=== PATIENT | female | born 1975 | race Caucasian/White ===

== ENCOUNTER 2018-10-13 00:43 | Emergency (ER) | payer SELFPAY ==
[~2018-10-13] VITALS: Ht 162.6 cm; Wt 110.7 kg
[2018-10-13] MEDS ORDERED: ASPIRIN 81 MG CHEW (CHILDREN'S ASA) PO ONE (01:00)
[2018-10-13] MEDS ORDERED: NITROGLYCERIN 0.4 MG SL TABS BTL 25'S SL PRN (01:00)
--- NOTE | 2018-10-13 01:03 | ED Chest Pain ---
General Stated Complaint: CHEST PAIN Source: patient Exam Limitations: no limitations History of Present Illness Date Seen by Provider: Oct 13, 2018 Time Seen by Provider: 00:49 Initial Comments Patient presents to ER by private conveyance with chief complaint of chest pain and palpitations worse with exertion. It started yesterday around 6 in the morning when she was getting off work at night. 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 She thought it would go away but it persisted. Tonight in the middle of her shift she was not able to get any more work done because the pain was getting up to a 10 out of 10 episodic and then going back down to a baseline of 3 out of 10. It's 5 out of 10 presently. She has not taken anything for it. She denies a history of drinking or drugs but she does smoke a cigarette every other day. She has no personal history of coronary artery disease or dysrhythmias. She had a stress test last year that was negative. Dr. Orellana is her primary care doctor. She has a history of POTS, lupus and spongiform medullary kidney. She remarks that her heart rate routinely runs around 100 110. Her blood pressure has been very high in the last 24 hours. She's been taking all of her usual medicines. She takes Hydrocort thiazide for blood pressure and 75 g of Synthroid. It's been a year since she's had her TSH checked. She's had echocardiograms in the past that did not demonstrate any heart failure per patient report. She's noted that she's had increased swelling lately. She feels shortness of breath when the pain comes on. She has not taken any nitroglycerin or aspirin. She has no significant family history of coronary artery disease. She does not have diabetes, hypercholesterolemia or personal history of CAD/ stroke. She denies a history of acid reflux. She does have asthma and took her inhaler at the beginning of her shift about 1800 but says it did not help with her breathlessness. She denies any wheezing cough fevers or chills. She denies nausea or radiation of her pain. Pain is made worse by deep inspiration and movement but not by direct palpation. She also admits to a history of dysautonomia causing high blood pressure. Allergies and Home Medications Allergies Coded Allergies: Penicillins (Verified Allergy, Severe, anaphylaxis, 10/13/18) Patient Home Medication List Home Medication List Reviewed: Yes Review of Systems Review of Systems Constitutional: No chills, No diaphoresis EENTM: No Blurred Vision, No Double Vision Respiratory: Denies Cough; Shortness of Air, SOA With Exertion; Denies Wheezing Cardiovascular: See HPI, Chest Pain, Edema; Denies Irregular Heart Rate; Palpitations Gastrointestinal: Denies Abdomen Distended, Denies Abdominal Pain, Denies Constipated, Denies Diarrhea, Denies Nausea Genitourinary: Denies Burning, Denies Discharge Musculoskeletal: No back pain, No joint pain Skin: No change in color, No dryness, No lesions Psychiatric/Neurological: Denies Headache, Denies Numbness, Denies Tingling Past Gvrivuf-Vjgyye-Myrqvc Hx Patient Social History Alcohol Use: Denies Use Recreational Drug Use: No Smoking Status: Current Everyday Smoker Type Used: Cigarettes (1 cig/day) Recent Foreign Travel: No Contact w/Someone Who Travel: No Physical Exam Vital Signs Vital Signs - First Documented 10/13/18 00:50 Temp 98.2 Pulse 96 Resp 16 B/P (MAP) 160/114 (129) Pulse Ox 96 O2 Delivery Nasal Cannula O2 Flow Rate 2.00 Capillary Refill : Height, Weight, BMI Height: '" Weight: lbs. oz. kg; BMI Method: General Appearance: Mild Distress, Obese HEENT: Pharynx Normal, Moist Mucous Membranes Respiratory: Chest Non Tender, Lungs Clear, Normal Breath Sounds, No Accessory Muscle Use, No Respiratory Distress Cardiovascular: Regular Rate, Rhythm, No Murmur, Normal Peripheral Pulses ( bounding bilateral dorsal pedal pulses), Tachycardia, Other (trace bipedal edema ) Gastrointestinal: Non Tender, Soft Extremity: Normal Capillary Refill, Normal Inspection, Normal Range of Motion, Non Tender, No Calf Tenderness Neurologic/Psychiatric: Alert, Oriented x3 Skin: Normal Color, Warm/Dry Focused Exam Lactate Level 10/13/18 02:21: Lactic Acid Level 1.61 Lactic Acid Level Laboratory Tests Test 10/13/18 02:21 Lactic Acid Level 1.61 MMOL/L (0.50-2.00) Progress/Results/Core Measures Results/Orders Lab Results Laboratory Tests Test 10/13/18 01:01 10/13/18 02:21 10/13/18 02:25 10/13/18 03:11 Range/Units White Blood Count 7.5 4.3-11.0 10^3/uL Red Blood Count 4.77 4.35-5.85 10^6/uL Hemoglobin 14.5 11.5-16.0 G/DL Hematocrit 43 35-52 % Mean Corpuscular Volume 90 80-99 FL Mean Corpuscular Hemoglobin 30 25-34 PG Mean Corpuscular Hemoglobin Concent 34 32-36 G/DL Red Cell Distribution Width 11.8 10.0-14.5 % Platelet Count 278 130-400 10^3/uL Mean Platelet Volume 9.6 7.4-10.4 FL Neutrophils (%) (Auto) 56 42-75 % Lymphocytes (%) (Auto) 35 12-44 % Monocytes (%) (Auto) 5 0-12 % Eosinophils (%) (Auto) 3 0-10 % Basophils (%) (Auto) 0 0-10 % Neutrophils # (Auto) 4.2 1.8-7.8 X 10^3 Lymphocytes # (Auto) 2.6 1.0-4.0 X 10^3 Monocytes # (Auto) 0.4 0.0-1.0 X 10^3 Eosinophils # (Auto) 0.3 0.0-0.3 10^3/uL Basophils # (Auto) 0.0 0.0-0.1 10^3/uL Prothrombin Time 13.4 12.2-14.7 SEC INR Comment 1.0 0.8-1.4 Activated Partial Thromboplast Time 30 24-35 SEC D-Dimer 1.34 H 0.00-0.49 UG/ML Sodium Level 136 135-145 MMOL/L Potassium Level 3.3 L 3.6-5.0 MMOL/L Chloride Level 95 L 98-107 MMOL/L Carbon Dioxide Level 16 L 21-32 MMOL/L Anion Gap 25 H 5-14 MMOL/L Blood Urea Nitrogen 11 7-18 MG/DL Creatinine 0.71 0.60-1.30 MG/DL Estimat Glomerular Filtration Rate > 60 BUN/Creatinine Ratio 15 Glucose Level 174 H 70-105 MG/DL Calcium Level 9.6 8.5-10.1 MG/DL Corrected Calcium 8.5-10.1 MG/DL Magnesium Level 1.9 1.8-2.4 MG/DL Total Bilirubin 0.5 0.1-1.0 MG/DL Aspartate Amino Transf (AST/SGOT) 185 H 5-34 U/L Alanine Aminotransferase (ALT/SGPT) 221 H 0-55 U/L Alkaline Phosphatase 85 40-136 U/L Myoglobin 33.3 10.0-92.0 NG/ML Troponin T < 6 < 6 <=10 NG/L Pro-B-Type Natriuretic Peptide 23.5 <75.0 PG/ML Total Protein 7.7 6.4-8.2 GM/DL Albumin 4.8 H 3.2-4.5 GM/DL Lipase 40 8-78 U/L Salicylates Level < 0.3 L 5.0-20.0 MG/DL Acetaminophen Level < 10 L 10-30 UG/ML Serum Alcohol < 10 <10 MG/DL Lactic Acid Level 1.61 0.50-2.00 MMOL/L Urine Color YELLOW Urine Clarity CLEAR Urine pH 5.5 5-9 Urine Specific Blair 1.015 L 1.016-1.022 Urine Protein NEGATIVE NEGATIVE Urine Glucose (UA) NEGATIVE NEGATIVE Urine Ketones NEGATIVE NEGATIVE Urine Nitrite NEGATIVE NEGATIVE Urine Bilirubin NEGATIVE NEGATIVE Urine Urobilinogen 0.2 NORMAL MG/DL Urine Leukocyte Esterase TRACE H NEGATIVE Urine RBC (Auto) 3+ H NEGATIVE Urine RBC 0-2 /HPF Urine WBC 2-5 /HPF Urine Squamous Epithelial Cells 0-2 /HPF Urine Crystals NONE /LPF Urine Bacteria NEGATIVE /HPF Urine Casts NONE /LPF Urine Mucus SMALL H /LPF Urine Culture Indicated NO My Orders Orders - ANIL RIVERA Ekg Tracing (10/13/18 00:45) Continuous Ekg Monitoring (10/13/18 00:45) Cbc With Automated Diff (10/13/18 00:56) Magnesium (10/13/18 00:56) Chest 1 View Ap/Pa Only (10/13/18 00:56) Comprehensive Metabolic Panel (10/13/18 00:56) Myoglobin Serum (10/13/18 00:56) Protime With Inr (10/13/18 00:56) Partial Thromboplastin Time (10/13/18 00:56) Lipid Panel (10/14/18 06:00) Aspirin Chewable Tablet (Baby Aspirin Ch (10/13/18 01:00) Nitroglycerin 0.4 Mg Btl 25's (Nitrostat (10/13/18 01:00) Saline Lock/Iv-Start (10/13/18 00:56) Lipase (10/13/18 00:56) Fibrin Degradation Products (10/13/18 00:56) Troponin T (10/13/18 00:56) Probnp Fs (10/13/18 00:56) Orthostatic Vital Signs (Adult (10/13/18 01:11) Thyroid Stimulating Hormone (10/13/18 01:11) Troponin T (10/13/18 03:00) Lidocaine 2% Viscous 15 Ml (Xylocaine Vi (10/13/18 02:30) Famotidine Tablet (Pepcid Tablet) (10/13/18 02:16) Antacid Suspension (Mylanta Suspension (10/13/18 02:30) Potassium Cl 10meq/50ml Ivpb (Kcl 10 Meq (10/13/18 02:30) Ua Culture If Indicated (10/13/18 02:19) Lactic Acid Analyzer (10/13/18 02:19) Alcohol (10/13/18 02:19) Salicylate (10/13/18 02:19) Acetaminophen (10/13/18 02:27) Medications Given in ED Current Medications Medications Dose Ordered Sig/Natasha Route Start Time Stop Time Status Last Admin Dose Admin Al Hydrox/Mg Hydrox/Simethicone 30 ml ONCE ONCE PO 10/13/18 02:30 10/13/18 02:31 DC 10/13/18 02:33 30 ML Lidocaine HCl 15 ml ONCE ONCE PO 10/13/18 02:30 10/13/18 02:31 DC 10/13/18 02:33 15 ML Nitroglycerin 0.4 mg UD PRN SL 10/13/18 01:00 10/13/18 01:07 0.4 MG Potassium Chloride 50 ml @ 50 mls/hr ONCE ONCE IV 10/13/18 02:30 10/13/18 03:29 DC 10/13/18 02:33 50 MLS/HR Vital Signs/I&O 10/13/18 10/13/18 10/13/18 10/13/18 00:50 01:21 01:22 01:22 Temp 98.2 Pulse 96 96 Resp 16 B/P (MAP) 160/114 (129) 152/96 (114) 153/111 (125) 152/108 (123) Pulse Ox 96 O2 Delivery Nasal Cannula O2 Flow Rate 2.00 10/13/18 10/13/18 01:31 02:27 Temp 98.2 Pulse 96 Resp 16 B/P (MAP) 153/111 Pulse Ox 96 O2 Delivery Nasal Cannula Nasal Cannula O2 Flow Rate 2.00 2.00 Progress Progress Note #1: Time: 01:05 Progress Note Because of her elevated blood pressure we'll give her some aspirin and nitroglycerin see if that brings her pain down from a 5 out of 10. If this does not help and may try a GI cocktail. EKG is unremarkable initially. Plan to check orthostatic vital signs and TSH. TSH is a send out to [facility] and will not be available at this time. ED ACS is negative to points. Low risk by the EDACS Score. If the patient also has: (1) EKG without new ischemic changes and (2) negative initial and 2-hour troponins, then this patient is safe for discharge to early outpatient follow- up investigation (or proceed to earlier inpatient testing). If EKG with ischemic changes or positive troponin, they are not low risk and require normal risk stratification. [place] score for pulmonary embolism: 3 points. Low risk group: 7-9% incidence of PE from several studies. Well score for pulmonary embolism: 0.0 points. Low risk group: 1.3% chance of PE in an ED population. Progress Note #2: Time: 02:28 Progress Note Patient's AST and ALT are marginally elevated. She says this has not been elevated in the past. She did have a work related fingerstick about a year ago and had subsequent testing but it was negative. She's not having any significant nausea vomiting diarrhea but she does have a history of IBS D. This could cause her to be acidotic with an anion gap. She does not take Tylenol and has not been on aspirin. She has metformin prescribed to her but she says she's not been taking for the past 2 weeks. She denies alcohol or methanol use. She denies glue. 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 We'll check Tylenol, salicylate, alcohol, urine ketones, lactic acid lab values in addition to repeat troponin at 0300. She says she does avoid carbohydrates because she has a gluten insensitivity but is not actively seeking a ketogenic diet. She says she's been just feeling poorly With low energy for the past 3 or 4 weeks and to that and she was put on amphetamines to help give her more energy but she says she's not been taking them. She does take hydrochlorothiazide which may cause some of her mild electrolyte disturbances. We'll give her a little potassium while she is waiting on her lab results. Progress Note #3: Time: 03:38 Progress Note Labs are unremarkable. Patient's blood pressure has come down significantly and her pain has resolved after the GI cocktail. We'll then have her follow-up with Dr. Virgen, cardiology outpatient and her primary care provider for further workup of her symptoms outpatient. Initial ECG Impression Date: Oct 13, 2018 Initial ECG Impression Time: 00:56 Initial ECG Rate: 97 Initial ECG Rhythm: Normal Sinus Initial ECG Intervals: Normal Initial ECG Impression: Normal Initial ECG Comparisson: No Previous ECG Available Comment No previous EKGs to compare to but she is in normal sinus rhythm with no ST elevation or depression. Diagnostic Imaging Diagonstic Imaging: Xray Plain Films/CT/US/NM/MRI: chest (1v) Comments No acute cardiopulmonary processes noted. Soft tissues and osseous structures are unremarkable. Reviewed: Reviewed by Me Departure Impression Primary Impression: Chest pain Qualified Codes: R07.9 - Chest pain, unspecified Additional Impressions: Intermittent palpitations Elevated transaminase level Disposition: 01 HOME, SELF-CARE Condition: Stable Departure-Patient Inst. Decision time for Depature: 03:39 Referrals: NEFTALI VIRGEN MD FACP FAC CCDS NO,LOCAL PHYSICIAN (PCP) Primary Care Physician Patient Instructions: Chest Pain That Is Not Caused by the Heart (DC) Add. Discharge Instructions: Start taking omeprazole 20 mg daily for the next 2 weeks to see if this improves her symptoms. Call Dr. Virgen and request an appointment Sunday or Sunday. Return to the ER if you have significant chest pain. Continue to take your medications as prescribed. Take potassium supplement 20 mEq daily for the next week. Follow-up with primary care to discuss your elevated liver transaminases. Scripts Potassium Chloride (Potassium Chloride) 20 Meq Tablet.er 20 MEQ PO DAILY for 14 Days, #14 TAB 0 Refills Prov: ANIL RIVERA 10/13/18 Work/School Note: Work Release Form Date Seen in the Emergency Department: Oct 13, 2018 Return to Work: Oct 13, 2018 Restrictions: No Restrictions Copy Copies To 1: NEFTALI VIRGEN MD FACP FACC CCDS ANIL RIVERA Oct 13, 2018 01:03
[2018-10-13 01:21] VITALS: BP 152/96
[2018-10-13 01:22] VITALS: BP_SYST 152; BP_SYST 153; BP_DIAS 108; BP_DIAS 111
[2018-10-13 01:34] LABS: HEMATOCRIT 43 % (35-52); HEMOGLOBIN 14.5 G/DL (11.5-16.0); MEAN CORPUSCULAR HEMOGLOBIN 30 PG (25-34); MEAN CORPUSCULAR HGB CONC 34 G/DL (32-36); MEAN CORPUSCULAR VOLUME 90 FL (80-99); WHITE BLOOD COUNT 7.5 10^3/uL (4.3-11.0)
[2018-10-13 01:35] LABS: BASOPHILS % (AUTO) 0 % (0-10); EOSINOPHILS # (AUTO) 0.3 10^3/uL (0.0-0.3); EOSINOPHILS % (AUTO) 3 % (0-10); LYMPHOCYTES # (AUTO) 2.6 X 10^3 (1.0-4.0); LYMPHOCYTES % (AUTO) 35 % (12-44); MEAN PLATELET VOLUME 9.6 FL (7.4-10.4); MONOCYTES # (AUTO) 0.4 X 10^3 (0.0-1.0); MONOCYTES % (AUTO) 5 % (0-12); NEUTROPHILS # (AUTO) 4.2 X 10^3 (1.8-7.8); NEUTROPHILS % (AUTO) 56 % (42-75); PLATELET COUNT 278 10^3/uL (130-400); RED CELL DISTRIBUTION WIDTH 11.8 % (10.0-14.5)
--- NOTE | 2018-10-13 01:36 | NUR ---
PT. REPORTED HER PAIN IS GONE AFTER SHE RECEIVED THE NITRO. DOCTOR INFORMED.
[2018-10-13 01:56] LABS: PROTHROMBIN TIME PATIENT 13.4 SEC (12.2-14.7)
[2018-10-13 01:59] LABS: CHLORIDE 95 MMOL/L (98-107); POTASSIUM 3.3 MMOL/L (3.6-5.0); SODIUM 136 MMOL/L (135-145)
[2018-10-13 02:00] LABS: ALANINE AMINOTRANSFERASE 221 U/L (0-55); ALKALINE PHOSPHATASE 85 U/L (40-136); BILIRUBIN,TOTAL 0.5 MG/DL (0.1-1.0); BUN/CREATININE RATIO 15; CALCIUM 9.6 MG/DL (8.5-10.1); CARBON DIOXIDE 16 MMOL/L (21-32); CREATININE SERUM 0.71 MG/DL (0.60-1.30); GFR ESTIMATED > 60; GLUCOSE 174 MG/DL (70-105); MAGNESIUM 1.9 MG/DL (1.8-2.4)
[2018-10-13 02:01] LABS: ALBUMIN 4.8 GM/DL (3.2-4.5); LIPASE 40 U/L (8-78); TOTAL PROTEIN 7.7 GM/DL (6.4-8.2)
[2018-10-13] MEDS ORDERED: FAMOTIDINE 20 MG (PEPCID) TABLET PO STA (02:16)
--- NOTE | 2018-10-13 02:16 | NUR ---
Pt reported her pain is starting to come back. Doctor aware and new orders written.
[2018-10-13] MEDS ORDERED: ANTACID SUSP 30 ML UDC (MYLANTA) PO ONE (02:30)
[2018-10-13] MEDS ORDERED: LIDOCAINE 2% VISCOUS 15 ML UDC PO ONE (02:30)
[2018-10-13] MEDS ORDERED: POTASSIUM CL 10MEQ/50ML IVPB 50 ML IV ONE (02:30)
[2018-10-13 02:55] LABS: BILIRUBIN,URINE NEGATIVE (NEGATIVE); CLARITY,URINE CLEAR; COLOR,URINE YELLOW; GLUCOSE, URINE (UA) NEGATIVE (NEGATIVE); KETONES,URINE NEGATIVE (NEGATIVE); LEUKOCYTE ESTERASE ,URINE TRACE (NEGATIVE); NITRITE,URINE NEGATIVE (NEGATIVE); PH,URINE 5.5 (5-9); PROTEIN,URINE NEGATIVE (NEGATIVE); UROBILINOGEN,URINE 0.2 MG/DL (NORMAL)
[2018-10-13 02:56] LABS: BACTERIA,URINE NEGATIVE /HPF; RBC,URINE 0-2 /HPF; SQUAMOUS EPITHELIAL CELL,UR 0-2 /HPF
[2018-10-13 02:59] LABS: ACETAMINOPHEN < 10 UG/ML (10-30); SALICYLATE < 0.3 MG/DL (5.0-20.0)
[2018-10-13] MEDS ORDERED: POTA-51 PO (03:41)
[2018-10-13 03:43] VITALS: BP 142/88
--- NOTE | 2018-10-13 07:45 | Diagnostic Imaging Report ---
CHEST 1 VIEW AP/PA ONLY Indication: Chest pain elevated blood pressure. Comparison: None available. Findings: No focal airspace disease in the visualized lungs. Please note that the posterior lower lobes are poorly evaluated by portable radiography. No pleural effusion or pneumothorax. Normal cardiomediastinal silhouette. Impression: No acute cardiopulmonary process by portable radiography. Dictated by: Dictated on workstation # [id number]
== END 2018-10-13 03:47 | disposition home or self-care (01) ==
LOC: ER FS 00:47
DX: R07.9 Chest pain, unspecified (principal); R00.2 Palpitations; R74.0 Nonspecific elevation of levels of transaminase and lactic acid dehydrogenase [LDH]; F17.210 Nicotine dependence, cigarettes, uncomplicated; Z88.0 Allergy status to penicillin
CPT/HCPCS: 36415; 71045; 80053; 80320; 80329; 81000; 83605; 83690; 83735; 83874; 83880; 84443; 84484; 85025; 85379; 85610; 85730

== ENCOUNTER → 2019-03-25 | Outpatient (CLI) | payer OTHER ==
[~2019-03-25] MED LIST: POTA-51 PO
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
== END ==
LOC: RAD 10:34
PROVIDERS: ATTEND Pediatrics
DX: G44.311 Acute post-traumatic headache, intractable (principal); J32.8 Other chronic sinusitis; Y09 Assault by unspecified means
CPT/HCPCS: 70450

== ENCOUNTER 2020-03-22 11:15 | Emergency (ER) | payer SELFPAY ==
[~2020-03-22] VITALS: Ht 162.5 cm; Wt 100.9 kg
--- NOTE | 2020-03-22 11:30 | NUR ---
Pt reports details of Med/Surg hx when inquired for: off Adderall for 1 mo-[address] Orellana for elevated liver enzymes. Pt reports chronically fatigued and on Adderall for this. Pt states her fatigue level is much higher now. Pt denies diabetes then states "I am Pre-Diabetes and cannot take Metformin they prescribed." "My HgbA1C is mildly elevated." Pt reports she is under a work up and has been tested for lupus but her [place] went back to normal so excluded that, tested for Multiple Sclerosis and the brain just showed small vessel dz. Pt has been set up to be referred to Sodium Methylate Operator and another specialist regarding her medical conditions.
--- NOTE | 2020-03-22 11:39 | Diagnostic Imaging Report ---
INDICATION: Chest pain for 3 days. TIME OF EXAM: 11:30 AM. COMPARISON: Correlation is made with the prior chest from 10/13/2018. FINDINGS: The heart size is normal. The pulmonary vascularity is unremarkable. The lungs are clear. No infiltrate, effusion, or pneumothorax is detected. IMPRESSION: No acute cardiopulmonary process is detected. Dictated by: Dictated on workstation # [id number]
[2020-03-22 11:44] LABS: BASOPHILS % (AUTO) 0 % (0-10); EOSINOPHILS % (AUTO) 3 % (0-10); HEMATOCRIT 40 % (35-52); HEMOGLOBIN 14.2 G/DL (11.5-16.0); LYMPHOCYTES % (AUTO) 42 % (12-44); MEAN CORPUSCULAR HEMOGLOBIN 31 PG (25-34); MEAN CORPUSCULAR HGB CONC 36 G/DL (32-36); MEAN CORPUSCULAR VOLUME 86 FL (80-99); MEAN PLATELET VOLUME 10.2 FL (7.4-10.4); MONOCYTES % (AUTO) 4 % (0-12); NEUTROPHILS % (AUTO) 50 % (42-75); PLATELET COUNT 236 10^3/uL (130-400); WHITE BLOOD COUNT 7.5 10^3/uL (4.3-11.0)
[2020-03-22 11:45] LABS: EOSINOPHILS # (AUTO) 0.3 10^3/uL (0.0-0.3); LYMPHOCYTES # (AUTO) 3.1 X 10^3 (1.0-4.0); MONOCYTES # (AUTO) 0.3 X 10^3 (0.0-1.0); NEUTROPHILS # (AUTO) 3.7 X 10^3 (1.8-7.8)
[2020-03-22] MEDS ORDERED: NS IV 1000 ML 1,000 ML IV SCH ×4 (12:00→15:00)
--- NOTE | 2020-03-22 12:00 | NUR ---
Pt becoming tearful while nurse in room hanging her IV fluids. Pt speaks in a soft whisper "I am so fatigued, I hurt all over." notified.
[2020-03-22 12:02] LABS: CARBON DIOXIDE 23 MMOL/L (21-32); CHLORIDE 96 MMOL/L (98-107); POTASSIUM 3.8 MMOL/L (3.6-5.0); SODIUM 133 MMOL/L (135-145)
[2020-03-22 12:03] LABS: ALANINE AMINOTRANSFERASE 173 U/L (0-55); ALKALINE PHOSPHATASE 103 U/L (40-136); BILIRUBIN,TOTAL 0.6 MG/DL (0.1-1.0); BUN/CREATININE RATIO 18; CALCIUM 9.6 MG/DL (8.5-10.1); CREATININE SERUM 0.62 MG/DL (0.60-1.30); GFR ESTIMATED > 60; GLUCOSE 396 MG/DL (70-105); MAGNESIUM 1.7 MG/DL (1.6-2.4); TOTAL PROTEIN 7.3 GM/DL (6.4-8.2)
[2020-03-22 12:04] LABS: ALBUMIN 4.6 GM/DL (3.2-4.5)
[2020-03-22] MEDS ORDERED: MONT10TA26 (12:37)
[2020-03-22] MEDS ORDERED: Vitamin D3 (12:37)
[2020-03-22] MEDS ORDERED: HYDROCHLOROTHIAZIDE (12:37)
[2020-03-22] MEDS ORDERED: LEVO50TA6 (12:37)
[2020-03-22] MEDS ORDERED: ALBUTEROL (12:37)
[2020-03-22] MEDS ORDERED: DESV50TA18 (12:37)
--- NOTE | 2020-03-22 13:10 | NUR ---
in room discussing pt's elevated glucose and her symptoms. Plan to administer 3 liters of NS total. Pt will need to follow up with Dr Orellana for management of elevated glucose.
[2020-03-22 13:47] LABS: CLARITY,URINE CLEAR; COLOR,URINE YELLOW; GLUCOSE, URINE (UA) 3+ (NEGATIVE); KETONES,URINE NEGATIVE (NEGATIVE); NITRITE,URINE NEGATIVE (NEGATIVE); PROTEIN,URINE NEGATIVE (NEGATIVE)
[2020-03-22 13:48] LABS: BACTERIA,URINE NEGATIVE /HPF; BILIRUBIN,URINE NEGATIVE (NEGATIVE); LEUKOCYTE ESTERASE ,URINE NEGATIVE (NEGATIVE); RBC,URINE 0-2 /HPF; SQUAMOUS EPITHELIAL CELL,UR 0-2 /HPF; WBC,URINE 0-2 /HPF
[2020-03-22] MEDS ORDERED: inSUlin (REGULAR) HUMAN 1 UNIT/0.01 ML (CHARGE PER UNIT) SC ONE (15:00)
--- NOTE | 2020-03-22 15:07 | NUR ---
4th liter NS began to infuse. Pt continues to report excessive fatigue. Resting eyes closed at intervals. Pt reports feeling some better after 3 liters NS.
--- NOTE | 2020-03-22 16:07 | NUR ---
End of 4th liter of NS. Pt wanting her PCP Dr Orellana notified of findings in ED. Dr Cody has agreed.
[2020-03-22] MEDS ORDERED: GLMP2T PO (16:34)
[2020-03-22 16:40] VITALS: BP 151/82
--- NOTE | 2020-03-22 16:40 | NUR ---
Pt discharged to home after review of home instructions verbalized as understood.
--- NOTE | 2020-03-22 17:03 | ED Chest Pain ---
General Chief Complaint: Chest Pain Stated Complaint: CHEST PAIN; SOB Nursing Triage Note: Pt presents per POV reporting she was requested to come to ER by Dr Orellana for her off and on chest pain since Sunday. Pt reports her severe fatigue is stopping her from going to [facility]. Pt reports off Adderall for 1 mo used for her fatigue as liver enzymes elevated. Nursing Sepsis Screen: No Definite Risk Source: patient History of Present Illness Date Seen by Provider: Mar 22, 2020 Time Seen by Provider: 12:00 Initial Comments Patient is a 45-year-old diabetic female with history of hypothyroidism multiple medical problems who presents with increased fatigue shortness of breath. Patient states she has had similar symptoms multiple times has been worked up by her PCP and referred to an direct care provider. Her current episode shortness of breath and fatigue started 4 days ago. She denies dizziness lightheadedness palpitations, chest pain, cough, sore throat, fever, chills, sweats, nausea vomiting, abdominal pain, urinary frequency urgency and diarrhea. No other acute symptoms or complaints. Timing/Duration: 3-4 days Severity/Quality: severe Location: other Radiation: no radiation Activities at Onset: none Prior CP/Workup: no prior chest pain Associated Symptoms: fatigue Allergies and Home Medications Allergies Coded Allergies: Penicillins (Verified Allergy, Severe, anaphylaxis, 10/13/18) Home Medications Glimepiride 2 Mg Tab, 2 MG PO BID Prescribed by: MARK CODY on 03/22/20 1634 Potassium Chloride 20 Meq Tablet.er, 20 MEQ PO DAILY Prescribed by: ANIL RIVERA on 10/13/18 0341 Patient Home Medication List Home Medication List Reviewed: Yes Review of Systems Review of Systems Constitutional: see HPI EENTM: See HPI Respiratory: See HPI Cardiovascular: See HPI Gastrointestinal: See HPI Genitourinary: See HPI Musculoskeletal: see HPI Skin: see HPI Psychiatric/Neurological: See HPI Endocrine: See HPI Hematologic/Lymphatic: See HPI Past Vokgxik-Fctgqs-Rjrfdy Hx Past Med/Social Hx: Reviewed Nursing Past Med/Soc Hx Patient Social History Alcohol Use: Denies Use Recreational Drug Use: No Smoking Status: Current Everyday Smoker Type Used: Cigarettes 2nd Hand Smoke Exposure: No Recent Foreign Travel: No Contact w/Someone Who Travel: No Recent Infectious Disease Expo: No Recent Hopitalizations: No Physical Abuse: No Sexual Abuse: No Mistreated: No Fear: No Seasonal Allergies Seasonal Allergies: Yes Past Medical History Surgeries: Yes (Kidney stone removal, ureter stent, BMT, Breast biopsy) Breast, Ear Surgery, Gallbladder, Hysterectomy Respiratory: Yes Asthma Cardiac: Yes (POTS, Dysautonia) Hypertension Neurological: No Genitourinary: No Gastrointestinal: No Musculoskeletal: No Endocrine: Yes (Prediabetic, Chronic Fatigue) Hypothyroidsim HEENT: No Cancer: No Psychosocial: Yes Depression Integumentary: No Blood Disorders: No Physical Exam Vital Signs Vital Signs - First Documented 03/22/20 11:15 Temp 36.5 Pulse 99 Resp 21 B/P (MAP) 166/104 (124) Pulse Ox 96 O2 Delivery Room Air Capillary Refill : Less Than 3 Seconds Height, Weight, BMI Height: 5'4.00" Weight: 244lbs. oz. 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4 FL Neutrophils (%) (Auto) 50 42-75 % Lymphocytes (%) (Auto) 42 12-44 % Monocytes (%) (Auto) 4 0-12 % Eosinophils (%) (Auto) 3 0-10 % Basophils (%) (Auto) 0 0-10 % Neutrophils # (Auto) 3.7 1.8-7.8 X 10^3 Lymphocytes # (Auto) 3.1 1.0-4.0 X 10^3 Monocytes # (Auto) 0.3 0.0-1.0 X 10^3 Eosinophils # (Auto) 0.3 0.0-0.3 10^3/uL Basophils # (Auto) 0.0 0.0-0.1 10^3/uL Sodium Level 133 L 135-145 MMOL/L Potassium Level 3.8 3.6-5.0 MMOL/L Chloride Level 96 L 98-107 MMOL/L Carbon Dioxide Level 23 21-32 MMOL/L Anion Gap 14 5-14 MMOL/L Blood Urea Nitrogen 11 7-18 MG/DL Creatinine 0.62 0.60-1.30 MG/DL Estimat Glomerular Filtration Rate > 60 BUN/Creatinine Ratio 18 Glucose Level 396 H 70-105 MG/DL Calcium Level 9.6 8.5-10.1 MG/DL Corrected Calcium 8.5-10.1 MG/DL Magnesium Level 1.7 1.6-2.4 MG/DL Total Bilirubin 0.6 0.1-1.0 MG/DL Aspartate Amino Transf (AST/SGOT) 101 H 5-34 U/L Alanine Aminotransferase (ALT/SGPT) 173 H 0-55 U/L Alkaline Phosphatase 103 40-136 U/L Troponin I < 0.30 <0.30 NG/ML Total Protein 7.3 6.4-8.2 GM/DL Albumin 4.6 H 3.2-4.5 GM/DL Beta-Hydroxybutyrate (Chem panel) 0.08 0.00-0.27 MMOL/L Thyroid Stimulating Hormone (TSH) 1.92 0.35-4.94 UIU/ML Urine Color YELLOW Urine Clarity CLEAR Urine pH 6.0 5-9 Urine Specific [place] 1020 1.016-1.022 Urine Protein NEGATIVE NEGATIVE Urine Glucose (UA) 3+ H NEGATIVE Urine Ketones NEGATIVE NEGATIVE Urine Nitrite NEGATIVE NEGATIVE Urine Bilirubin NEGATIVE NEGATIVE Urine Urobilinogen 0.2 < = 1.0 MG/DL Urine Leukocyte Esterase NEGATIVE NEGATIVE Urine RBC (Auto) TRACE H NEGATIVE Urine RBC 0-2 /HPF Urine WBC 0-2 /HPF Urine Squamous Epithelial Cells 0-2 /HPF Urine Crystals NONE /LPF Urine Bacteria NEGATIVE /HPF Urine Casts NONE /LPF Urine Mucus NEGATIVE /LPF Urine Culture Indicated NO Glucometer 301 H 300 H 70-110 MG/DL My Orders Orders - MARK CODY DO Cbc With Automated Diff (03/22/20 11:29) Comprehensive Metabolic Panel (03/22/20 11:29) Troponin I Fs (03/22/20 11:29) Thyroid Stimulating Hormone (03/22/20 11:29) Magnesium (03/22/20 11:29) Ua Culture If Indicated (03/22/20 11:29) Ekg Tracing (03/22/20 11:29) Chest 1 View Ap/Pa Only (03/22/20 11:29) Ns Iv 1000 Ml (Sodium Chloride 0.9%) (03/22/20 12:00) Ns Iv 1000 Ml (Sodium Chloride 0.9%) (03/22/20 13:15) Beta Hydroxybutyrate (03/22/20 13:06) Ed Iv/Invasive Line Start (03/22/20 13:14) Ns Iv 1000 Ml (Sodium Chloride 0.9%) (03/22/20 13:14) Accucheck Fasting (03/22/20 14:51) Ns Iv 1000 Ml (Sodium Chloride 0.9%) (03/22/20 15:00) Insulin (Regular) Human (Novolin R (Per (03/22/20 15:00) Accucheck Achs ACHS (03/22/20 15:52) Medications Given in ED Current Medications Medications Dose Ordered Sig/Natasha Route Start Time Stop Time Status Last Admin Dose Admin Insulin Human Regular 10 unit ONCE ONCE SC 03/22/20 15:00 03/22/20 15:01 DC 03/22/20 15:08 10 UNIT Vital Signs/I&O 03/22/20 03/22/20 03/22/20 11:15 11:15 16:40 Temp 36.5 36.2 Pulse 99 78 Resp 21 18 B/P (MAP) 166/104 (124) 151/82 (124) Pulse Ox 96 96 O2 Delivery Room Air Room Air Room Air Blood Pressure Mean: 124 FSBG Bedside Testing Finger Stick Blood Glucose: 300 Blood Glucose Action Taken: reported to Dr Cody Departure Communication (Admissions) EKG: reviewed Patient's blood sugar 396 likely intermitting to symptoms. Patient also noted to be hypertensive. 4 L of fluids and 10 units of subcutaneous regular insulin given with significant symptomatic improvement. Blood sugar also improved. Case reviewed in detail with Dr. Orellana, the patient's primary care physician. Recommendations are to start Amaryl 2 mg twice daily, twice daily blood sugar monitoring and close follow-up in office. Patient verbalizes understanding and agreement discharge instructions prior to departure. Impression Primary Impression: Hyperglycemia Additional Impression: Fatigue Disposition: HOME, SELF-CARE Condition: Stable Departure-Patient Inst. Decision time for Depature: 16:00 Patient Instructions: Hyperglycemia, Adult (DC) Add. Discharge Instructions: You were evaluated in the emergency department for fatigue. Labs were checcked and your blood sugar was in the upper 300 range. Please avoid all simple sugars and take newly prescribed medications as directed. Follow-up with Dr. Orellana in the office in 5-7 days. All discharge instructions reviewed with patient and/or family. Voiced understanding. Scripts Glimepiride (Amaryl) 2 Mg Tab 2 MG PO BID, #14 TAB Prov: MARK CODY DO 03/22/20 MARK CODY DO Mar 22, 2020 17:03
== END 2020-03-22 16:40 | disposition home or self-care (01) ==
LOC: EDUNIT# 11:15 → ER FS 11:17
DX: E11.65 Type 2 diabetes mellitus with hyperglycemia (principal); R53.83 Other fatigue; F17.210 Nicotine dependence, cigarettes, uncomplicated; Z88.0 Allergy status to penicillin
CPT/HCPCS: 36415; 71045; 80053; 81000; 82010; 82962; 83735; 84443; 84484; 85025; 93005

== ENCOUNTER 2021-04-08 13:31 | Emergency (ER) | payer BC, OTHER ==
[~2021-04-08] VITALS: Ht 160 cm; Wt 99.0 kg
[~2021-04-08 13:31] MED LIST changes: +ALBUTEROL; +DESV50TA18; +GLMP2T PO; +HYDROCHLOROTHIAZIDE; +LEVO50TA6; +MONT10TA32; +Vitamin D3
[2021-04-08] MEDS ORDERED: fentaNYL INJ 100 MCG/2 ML AMP IVP STA (14:07)
[2021-04-08] MEDS ORDERED: NS IV 1000 ML 1,000 ML IV STA ×2 (14:07→16:52)
[2021-04-08] MEDS ORDERED: LORazepam INJ 2 MG/ML (ATIVAN) VIAL IVP STA (14:07)
[2021-04-08] MEDS ORDERED: PROMETHAZINE INJ 25 MG/ML (PHENERGAN) AMP IVP STA (14:07)
--- NOTE | 2021-04-08 14:10 | ED General ---
General Chief Complaint: Head/Cervical Problems Stated Complaint: HEADACHE; VOMITING; NECK PAIN; FEVER Nursing Triage Note: PT REPORTS A HEADACHE FOR A WEEK NOW. SHE HAS BEEN TO [facility] AND HAD LABS AND A CT HEAD DONE DURING THIS TIME. SHE REPORTS FENTANYL AND PHENERGAN WORKED BUT THE TORADOL, COMPAZINE AND BENADRYL DID NOT. Source of Information: Patient History of Present Illness Date Seen by Provider: Apr 08, 2021 Time Seen by Provider: 13:40 Initial Comments 46 yo female presenting with complaint of continued severe headache and neck pain with stiffness. She has had this for over a week now. She thought that she was doing well enough that she could try going to work today in the office but that made things worse. She has had multiple evaluations and work-up in the [facility] and with Dr. Panchal. All of those tests had come back negative without acute abnormalities to explain her symptoms. They thought maybe she had a tick bite or bug bite on the back of her right neck and she has been taking doxycycline for that. Initial tick borne illness testing has been negative but it was done in this acute phase when her symptoms have just started. She denies any direct head trauma or injury. She has had Covid testing has been negative as well. She reports a remote history of meningitis and states that this headache feels worse. She is tearful at times and states that she feels like she needs a lumbar puncture or scan of her head with contrast to look for swelling and injury. Timing/Duration: 1 Week Severity: Severe Modifying Factors: worse with Movement Associated Systoms: No Chest Pain, No Cough, No Diaphoresis; Fever/Chills (subjective), Headaches, Loss of Appetite, Malaise, Nausea/Vomiting (when pain is severe); No Rash, No Seizure, No Shortness of Air, No Syncope Allergies and Home Medications Allergies Coded Allergies: Penicillins (Verified Allergy, Severe, anaphylaxis, 10/13/18) Patient Home Medication List Home Medication List Reviewed: Yes Baclofen (Baclofen) 10 Mg Tablet, 10 MG PO BID PRN for muscle spasm/neck pain Prescribed by: JULIET LOZADA on 04/08/21 1849 Desvenlafaxine Succinate (Desvenlafaxine Succinate ER) 50 Mg Tab.er.24h, (Reported) Entered as Reported by: HUAN FINK on 03/22/20 1237 Glimepiride (Amaryl) 2 Mg Tab, 2 MG PO BID Prescribed by: MARK BENNETT on 03/22/20 1634 Levothyroxine Sodium (Levothyroxine Sodium) 50 Mcg Tablet, (Reported) Entered as Reported by: HUAN FNIK on 03/22/20 1237 Montelukast Sodium (Montelukast Sodium) 10 Mg Tablet, (Reported) Entered as Reported by: HUAN FINK on 03/22/20 1237 Potassium Chloride (Potassium Chloride) 20 Meq Tablet.er, 20 MEQ PO DAILY Prescribed by: ANIL RIVERA on 10/13/18 0341 [Albuterol] , (Reported) Entered as Reported by: HUAN FINK on 03/22/20 1237 [Hydrochlorothiazide] , (Reported) Entered as Reported by: HUAN FINK on 03/22/20 1237 [Vitamin D3] , (Reported) Entered as Reported by: HUAN FINK on 03/22/20 1237 Review of Systems Review of Systems Constitutional: see HPI EENTM: blurred vision (at times); No ear discharge, No hearing loss, No ear pain, No vision loss, No epistaxis, No nose congestion Respiratory: no symptoms reported Cardiovascular: no symptoms reported Gastrointestinal: nausea, vomiting (with headache pain) Genitourinary: no symptoms reported Musculoskeletal: neck pain Skin: No rash; other (swelling with tenderness to right side of posterior neck) Psychiatric/Neurological: See HPI, Anxiety Past Cirnioo-Ojkcgt-Zoauds Hx Patient Social History Tobacco Use?: Yes Tobacco type used: Cigarettes Smoking Status: Current Everyday Smoker Use of E-Cig and/or Vaping dev: No Substance use?: No Alcohol Use?: No Pt feels they are or have been: No Immunizations Up To Date First/Initial COVID19 Vaccinat: DECEMBER 2020 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: [employer] Seasonal Allergies Seasonal Allergies: Yes Past Medical History Surgeries: Yes (Kidney stone removal, ureter stent, BMT, Breast biopsy) Breast, Ear Surgery, Gallbladder, Hysterectomy Respiratory: Yes Asthma Cardiac: Yes (POTS, Dysautonia) Hypertension Neurological: No Genitourinary: No Gastrointestinal: No Musculoskeletal: No Endocrine: Yes (Prediabetic, Chronic Fatigue) Hypothyroidsim HEENT: No Cancer: No Psychosocial: Yes Depression Integumentary: No Blood Disorders: No Physical Exam Vital Signs Vital Signs - First Documented 04/08/21 13:45 Temp 36.9 Pulse 104 Resp 16 B/P (MAP) 159/110 (126) Pulse Ox 98 O2 Delivery Room Air Capillary Refill : Less Than 3 Seconds Height, Weight, BMI Height: 5'4.00" Weight: 244lbs. oz. 110.173442ya; 38.00 BMI Method:Stated General Appearance: Moderate Distress, Obese HEENT: PERRL/EOMI, Pharynx Normal, Moist Mucous Membranes Neck: Limited Range of Motion (due to pain and muscle spasms), Tender Lateral, Tender Midline Respiratory: Chest Non Tender, Lungs Clear, Normal Breath Sounds, No Accessory Muscle Use, No Respiratory Distress Cardiovascular: Regular Rate, Rhythm, Normal Peripheral Pulses Gastrointestinal: No Pulsatile Mass, Non Tender, Soft Rectal: Deferred Extremity: Normal Capillary Refill, Normal Inspection, No Pedal Edema Neurologic/Psychiatric: Alert, Oriented x3, No Motor/Sensory Deficits, sand shoveler II- XII Norm as Tested Skin: Normal Color, Warm/Dry Progress/Results/Core Measures Suspected Sepsis SIRS Temperature: Pulse: 104 Respiratory Rate: 16 Laboratory Tests 04/08/21 13:55: White Blood Count 7.4 Blood Pressure 159 /110 Mean: 126 Laboratory Tests 04/08/21 13:55: Creatinine 0.74, Platelet Count 315, Total Bilirubin 0.3 Results/Orders Lab Results Laboratory Tests Test 04/08/21 13:55 Range/Units White Blood Count 7.4 4.3-11.0 10^3/uL Red Blood Count 5.08 3.80-5.11 10^6/uL Hemoglobin 15.4 11.5-16.0 g/dL Hematocrit 44 35-52 % Mean Corpuscular Volume 87 80-99 fL Mean Corpuscular Hemoglobin 30 25-34 pg Mean Corpuscular Hemoglobin Concent 35 32-36 g/dL Red Cell Distribution Width 12.5 10.0-14.5 % Platelet Count 315 130-400 10^3/uL Mean Platelet Volume 9.8 9.0-12.2 fL Immature Granulocyte % (Auto) 0 % Neutrophils (%) (Auto) 50 42-75 % Lymphocytes (%) (Auto) 40 12-44 % Monocytes (%) (Auto) 6 0-12 % Eosinophils (%) (Auto) 3 0-10 % Basophils (%) (Auto) 0 0-10 % Neutrophils # (Auto) 3.7 1.8-7.8 X 10^3 Lymphocytes # (Auto) 3.0 1.0-4.0 X 10^3 Monocytes # (Auto) 0.5 0.0-1.0 X 10^3 Eosinophils # (Auto) 0.2 0.0-0.3 10^3/uL Basophils # (Auto) 0.0 0.0-0.1 10^3/uL Immature Granulocyte # (Auto) 0.0 0.0-0.1 10^3/uL Sodium Level 137 135-145 MMOL/L Potassium Level 3.6 3.6-5.0 MMOL/L Chloride Level 101 98-107 MMOL/L Carbon Dioxide Level 22 21-32 MMOL/L Anion Gap 14 5-14 MMOL/L Blood Urea Nitrogen 16 7-18 MG/DL Creatinine 0.74 0.60-1.30 MG/DL Estimat Glomerular Filtration Rate 84 BUN/Creatinine Ratio 22 Glucose Level 152 H 70-105 MG/DL Calcium Level 9.4 8.5-10.1 MG/DL Corrected Calcium 8.5-10.1 MG/DL Total Bilirubin 0.3 0.1-1.0 MG/DL Aspartate Amino Transf (AST/SGOT) 40 H 5-34 U/L Alanine Aminotransferase (ALT/SGPT) 52 0-55 U/L Alkaline Phosphatase 87 40-136 U/L C-Reactive Protein 0.48 <0.50 MG/DL Total Protein 7.7 6.4-8.2 GM/DL Albumin 4.8 H 3.2-4.5 GM/DL My Orders Orders - JULIET LOZADA MD Comprehensive Metabolic Panel (04/08/21 14:00) Ed Iv/Invasive Line Start (04/08/21 14:00) Cbc With Automated Diff (04/08/21 14:00) Crp Fs (04/08/21 14:00) Ct Angio Head/Neck (04/08/21 14:00) Obtain Records From (Order) (04/08/21 14:06) Iohexol Injection (Omnipaque 350 Mg/Ml 1 (04/08/21 14:15) Received Contrast (Hold Metformin- Contr (04/08/21 14:15) Sodium Chloride Flush (Catheter Flush Sy (04/08/21 14:15) Ns (Ivpb) (Sodium Chloride 0.9% Ivpb Bag (04/08/21 14:15) Ns Iv 1000 Ml (Sodium Chloride 0.9%) (04/08/21 14:07) Fentanyl Inj (Sublimaze Injection) (04/08/21 14:07) Lorazepam Injection (Ativan Injection) (04/08/21 14:07) Promethazine Injection (Phenergan Injec (04/08/21 14:07) Magnesium 1 Gm/100 Ml Ivpb (Magnesium Velasco (04/08/21 16:52) Ns Iv 1000 Ml (Sodium Chloride 0.9%) (04/08/21 16:52) Orphenadrine Inj (Ed Only) (Norflex Inje (04/08/21 16:52) Medications Given in ED Current Medications Medications Dose Ordered Sig/Natasha Route Start Time Stop Time Status Last Admin Dose Admin Iohexol 75 ml ONCE ONCE IV 04/08/21 14:15 04/08/21 14:16 DC 04/08/21 14:46 75 ML Sodium Chloride 10 ml NEEDED PRN IV 04/08/21 14:15 04/08/21 18:51 DC 04/08/21 14:46 10 ML Sodium Chloride 100 ml ONCE ONCE IV 04/08/21 14:15 04/08/21 14:16 DC 04/08/21 14:46 100 ML Vital Signs/I&O 04/08/21 04/08/21 13:45 18:43 Temp 36.9 36.9 Pulse 104 84 Resp 16 16 B/P (MAP) 159/110 (126) 138/62 Pulse Ox 98 98 O2 Delivery Room Air Room Air Capillary Refill : Less Than 3 Seconds Blood Pressure Mean: 126 Progress Note #1: Progress Note Check basic labs as well as CRP and CT angiogram of the head neck. Give IV fluids along with fentanyl and Phenergan to try and help with her symptoms. Reviewed records from [facility] Progress Note #2: Progress Note Labs are all stable without acute significant abnormality. CRP is normal. CT angiogram does not show any acute abnormality to account for her pain and symptoms. There is no abscess or swelling noted. On recheck of the patient she reports that her pain is down to a 6 and she can move her head neck now. She is still anxious and tearful at times worried because she does not know what is causing the headache and worried that if she goes home and will just come back. Counseled that the next steps in terms of work-up that I would recommend would be an MRI and neurology for further evaluation. These are not test that I have access to here and she would need to be transferred to a larger facility such as in [place]. The patient was going to contact her friend and discuss this to decide if she would possibly do this as a transfer or if she would try going home and then if not improved at home drive up to [place] on her own. Progress Note #3: Progress Note Patient decided she would let me try Magnesium Sulfate 1 gm IV along with additional IVF and Norflex for muscle relaxer. Will call [facility] about possible transfer but warned patient that they were on diversion Sunday when I tried to transfer patient. She voiced understanding and was hopeful that the treatment here in the ED with acute difference. However if she can get to a facility that has MRI and neurology for further evaluation and treatment she would still like to do that due to the severity of her headache. She was rating it at a 6 out of 10 still. 1732 after speaking with the [facility] access center and finding out that all of the [facility] facilities were currently on diversion and at capacity I went to speak with the patient and update her. She was sleeping soundly in the room and had to be awoken by voice and shaking her shoulder. She stated that she had been sleeping and resting and was feeling the most comfortable that she had all week. She was very happy with the magnesium infusion and hopeful that this would take care of her pain. Will reassess after the medication infuses and if she is still not feeling comfortable going home then contacting [facility] and to see if either those facilities would have capacity for transfer to a work-up her severe headache with neurology and MRI. Otherwise she can follow-up as an outpatient with Dr. Panchal Progress Note #4: Progress Note Pt reports pain 5/10 after Mag sulfate infused and additional IVF. She reports she feels good enough to go home and that this is the best she has felt all week. she was counseled on follow up and return precautions. Will try Baclofen as a different muscle relaxer for her to help with neck spasm and pain. Diagnostic Imaging Diagonstic Imaging: CT (angiogram head and neck) Plain Films/CT/US/NM/MRI: head (and neck) Comments [facility]. [place], [place] NAME: ANDER MARTINES REC#: [id number] PT STATUS: REG ER : 1975 PHYSICIAN: JULIET LOZADA MD ADMIT DATE: 04/08/21/ER FS Signed Date of Exam:04/08/21 CT ANGIO HEAD/NECK PROCEDURE: CT angiography of the head and CT angiography of the neck with and without contrast. TECHNIQUE: Contiguous noncontrast images were obtained from the skull base through the vertex. After intravenous contrast administration, helical CT angiography of the neck was performed. Source data was reformatted into 3D MIP projections. Delayed post contrast acquisition was also obtained. Auto Exposure Controls were utilized during the CT exam to meet ALARA standards for radiation dose reduction. INDICATION: Severe pain in the back of the neck as well as a frontal headache for [address] ANGIOGRAM NECK: There is a two-vessel branching pattern to the aortic arch with a bovine arch, a normal variant. The right common carotid artery is widely patent. The left common carotid artery is widely patent. Both carotid bifurcations are unremarkable. The right internal carotid artery is widely patent. The left internal carotid artery is widely patent. The vertebral arteries are codominant. There is calcified plaque in the basilar artery; however, basilar does appear to be patent. CTA HEAD: The right posterior cerebral artery is patent. There is origin to the left posterior cerebral artery with patent P-comm. Left posterior cerebral artery is patent. The M1 and M2 segments of the middle cerebral arteries are patent. The right and left anterior cerebral arteries are patent. No large branch occlusion or thromboembolism is seen. No vessel injury is identified. IMPRESSION: Unremarkable CT angiogram of the head and neck. Dictated by: Dictated on workstation # [id number] Dict: 04/08/21 1457 Trans: 04/08/21 1540 [id number] Interpreted by: MARY JANE NEGRO MD Electronically signed by: MARY JANE NEGRO MD 04/08/21 1540 Departure Impression Primary Impression: Intractable headache Qualified Codes: R51.9 - Headache, unspecified Additional Impression: Neck pain without injury Disposition: HOME, SELF-CARE Condition: Improved Departure-Patient Inst. Decision time for Depature: 18:46 Referrals: GERHARD PANCHAL MD (PCP/Family) Primary Care Physician Patient Instructions: Neck Pain ED, Headache, Adult ED Add. Discharge Instructions: Try taking Baclofen (Lioresal) as a muscle relaxer to help with neck and head p ain. Continue with your excedrin migraine and headache medicine. Check with clinic and Dr. Panchal if continued concerns as you may need MRI or Neurology evaluation. If worsening over the weekend then you may return or go directly to ER in [place] where they will have more resources such as the MRI and Neurologists All discharge instructions reviewed with patient and/or family. Voiced understanding. Scripts Baclofen (Baclofen) 10 Mg Tablet 10 MG PO BID PRN for muscle spasm/neck pain for 7 Days, #14 TAB 0 Refills Prov: JULIET LOZADA MD 04/08/21 Work/School Note: Work Release Form Date Seen in the Emergency Department: Apr 08, 2021 Return to Work: Apr 12, 2021 Restrictions: No Restrictions JULIET LOZADA MD Apr 08, 2021 14:10
[2021-04-08] MEDS ORDERED: CATHETER FLUSH 10 ML SYR IV PRN (14:15)
[2021-04-08] MEDS ORDERED: HOLD METFORMIN - RECEIVED CONTRAST 20 ML VIAL IV SCH (14:15)
[2021-04-08] MEDS ORDERED: IOHEXOL 350 MG/ML 100 ML (OMNIPAQUE 350) VIAL IV ONE (14:15)
[2021-04-08] MEDS ORDERED: NS 100 ML (IVPB) BAG IV ONE (14:15)
[2021-04-08 14:31] LABS: HEMATOCRIT 44 % (35-52); HEMOGLOBIN 15.4 g/dL (11.5-16.0); MEAN CORPUSCULAR HEMOGLOBIN 30 pg (25-34); MEAN CORPUSCULAR HGB CONC 35 g/dL (32-36); MEAN CORPUSCULAR VOLUME 87 fL (80-99); MEAN PLATELET VOLUME 9.8 fL (9.0-12.2); NEUTROPHILS % (AUTO) 50 % (42-75); PLATELET COUNT 315 10^3/uL (130-400); WHITE BLOOD COUNT 7.4 10^3/uL (4.3-11.0)
[2021-04-08 14:32] LABS: BASOPHILS % (AUTO) 0 % (0-10); EOSINOPHILS # (AUTO) 0.2 10^3/uL (0.0-0.3); EOSINOPHILS % (AUTO) 3 % (0-10); LYMPHOCYTES % (AUTO) 40 % (12-44); MONOCYTES # (AUTO) 0.5 X 10^3 (0.0-1.0); MONOCYTES % (AUTO) 6 % (0-12); NEUTROPHILS # (AUTO) 3.7 X 10^3 (1.8-7.8)
[2021-04-08 14:37] LABS: ALANINE AMINOTRANSFERASE 52 U/L (0-55); ALBUMIN 4.8 GM/DL (3.2-4.5); ALKALINE PHOSPHATASE 87 U/L (40-136); BILIRUBIN,TOTAL 0.3 MG/DL (0.1-1.0); BUN/CREATININE RATIO 22; CALCIUM 9.4 MG/DL (8.5-10.1); CARBON DIOXIDE 22 MMOL/L (21-32); CHLORIDE 101 MMOL/L (98-107); CREATININE SERUM 0.74 MG/DL (0.60-1.30); GFR ESTIMATED 84; GLUCOSE 152 MG/DL (70-105); POTASSIUM 3.6 MMOL/L (3.6-5.0); SODIUM 137 MMOL/L (135-145); TOTAL PROTEIN 7.7 GM/DL (6.4-8.2)
--- NOTE | 2021-04-08 15:06 | Diagnostic Imaging Report ---
PROCEDURE: CT angiography of the head and CT angiography of the neck with and without contrast. TECHNIQUE: Contiguous noncontrast images were obtained from the skull base through the vertex. After intravenous contrast administration, helical CT angiography of the neck was performed. Source data was reformatted into 3D MIP projections. Delayed post contrast acquisition was also obtained. Auto Exposure Controls were utilized during the CT exam to meet ALARA standards for radiation dose reduction. INDICATION: Severe pain in the back of the neck as well as a frontal headache for [address] ANGIOGRAM NECK: There is a two-vessel branching pattern to the aortic arch with a bovine arch, a normal variant. The right common carotid artery is widely patent. The left common carotid artery is widely patent. Both carotid bifurcations are unremarkable. The right internal carotid artery is widely patent. The left internal carotid artery is widely patent. The vertebral arteries are codominant. There is calcified plaque in the basilar artery; however, basilar does appear to be patent. CTA HEAD: The right posterior cerebral artery is patent. There is origin to the left posterior cerebral artery with patent P-comm. Left posterior cerebral artery is patent. The M1 and M2 segments of the middle cerebral arteries are patent. The right and left anterior cerebral arteries are patent. No large branch occlusion or thromboembolism is seen. No vessel injury is identified. IMPRESSION: Unremarkable CT angiogram of the head and neck. Dictated by: Dictated on workstation # [id number]
[2021-04-08] MEDS ORDERED: MAGNESIUM 1 GM/100 ML IVPB 100 ML IV STA (16:52)
[2021-04-08] MEDS ORDERED: ORPHENADRINE 60 MG/2 ML (NORFLEX) AMP (ED ONLY) IVP STA (16:52)
[2021-04-08 18:43] VITALS: BP 138/62
[2021-04-08] MEDS ORDERED: BACL10TA PO (18:49)
== END 2021-04-08 18:50 | disposition home or self-care (01) ==
LOC: EDUNIT# 13:31 → ER FS 13:34
DX: R51.9 Headache, unspecified (principal); M54.2 Cervicalgia; E66.9 Obesity, unspecified; J45.909 Unspecified asthma, uncomplicated; I10 Essential (primary) hypertension; F32.9 Major depressive disorder, single episode, unspecified; E03.9 Hypothyroidism, unspecified; F17.210 Nicotine dependence, cigarettes, uncomplicated; Z68.38 Body mass index [BMI] 38.0-38.9, adult; Z20.822 Contact with and (suspected) exposure to COVID-19; Z79.890 Hormone replacement therapy; Z79.899 Other long term (current) drug therapy
CPT/HCPCS: 36415; 70496; 70498; 80053; 85025; 86141

== ENCOUNTER 2021-07-03 06:10 | Observation (INO) | payer BC ==
[~2021-07-03] VITALS: Ht 160 cm; Wt 106.5 kg
[2021-07-03] VITALS (7 sets, daily range): BP systolic 147–187; BP diastolic 92–108
[~2021-07-03 06:10] MED LIST changes: +BACL10TA PO; -DESV50TA18; +DESV50TA18 PO; -LEVO50TA6; +LEVO50TA6 PO; +MONT-40 PO; -MONT10TA32
[2021-07-03] MEDS ORDERED: NS IV 1000 ML 1,000 ML IV STA (06:26)
[2021-07-03] MEDS ORDERED: HYDROmorphone 2 MG/ML VIAL (DILAUDID) IV STA (06:26)
[2021-07-03] MEDS ORDERED: KETOROLAC 30 MG/ML VIAL IVP STA (06:26)
[2021-07-03] MEDS ORDERED: ONDANSETRON 4 MG/2 ML (SDV) Z0FRAN IVP STA (06:26)
--- NOTE | 2021-07-03 06:37 | ED General ---
General Chief Complaint: Abdominal/GI Problems Stated Complaint: KIDNEY STONE Source of Information: Patient (JULIET LOZADA MD) History of Present Illness Date Seen by Provider: Jul 03, 2021 Time Seen by Provider: 06:15 Initial Comments 46-year-old female presenting with complaints of left flank pain since 1 AM. She states that she has had nausea and vomiting x3. She has seen some blood in his urine. She has a history of prior kidney stones. Usually had pain on the right side when she has had kidney stones but this pain has all been on the left. She feels like it is moving lower. She is very dramatically moaning and crying out every few seconds, unless she is distracted. She has had chills since the pain started in her left side. She denies fevers, diarrhea, change in bowels, burning with urination. She does not routinely follow with a Urologist. Instead she sees Dr. Panchal for her Urology care if she has problems. She states they usually treat her pain with Dilaudid. Timing/Duration: 4-6 Hours Severity: Severe Associated Systoms: No Chest Pain, No Cough; Fever/Chills (no fever but has chills); No Loss of Appetite, No Malaise; Nausea/Vomiting; No Seizure, No Shortness of Air, No Syncope, No Weakness (JULIET LOZADA MD) Allergies and Home Medications Allergies Coded Allergies: Penicillins (Verified Allergy, Severe, anaphylaxis, 10/13/18) Patient Home Medication List Home Medication List Reviewed: Yes (JULIET LOZADA MD) Baclofen (Baclofen) 10 Mg Tablet, 10 MG PO BID PRN for muscle spasm/neck pain Prescribed by: JULIET LOZADA on 04/08/21 1849 Desvenlafaxine Succinate (Desvenlafaxine Succinate ER) 50 Mg Tab.er.24h, (R eported) Entered as Reported by: HUAN FINK on 03/22/20 1237 Glimepiride (Amaryl) 2 Mg Tab, 2 MG PO BID Prescribed by: MARK CODY on 03/22/20 1634 Levothyroxine Sodium (Levothyroxine Sodium) 50 Mcg Tablet, (Reported) Entered as Reported by: HUAN FINK on 03/22/20 1237 Montelukast Sodium (Montelukast Sodium) 10 Mg Tablet, (Reported) Entered as Reported by: HUAN FINK on 03/22/20 1237 Potassium Chloride (Potassium Chloride) 20 Meq Tablet.er, 20 MEQ PO DAILY Prescribed by: ANIL RIVERA on 10/13/18 0341 [Albuterol] , (Reported) Entered as Reported by: HUAN FINK on 03/22/20 1237 [Hydrochlorothiazide] , (Reported) Entered as Reported by: HUAN FINK on 03/22/20 1237 [Vitamin D3] , (Reported) Entered as Reported by: HUAN FINK on 03/22/20 1237 Review of Systems Review of Systems Constitutional: chills; No fever EENTM: no symptoms reported Respiratory: no symptoms reported Cardiovascular: no symptoms reported Gastrointestinal: abdominal pain (left flank pain), nausea, vomiting Genitourinary: hematuria, pain (left flank pain) Musculoskeletal: see HPI Skin: No rash Psychiatric/Neurological: Anxiety (JULIET LOZADA MD) Past Kcflmzd-Oqylmh-Edoasz Hx Patient Social History Tobacco Use?: Yes Tobacco type used: Cigarettes Smoking Status: Current Everyday Smoker (JULIET LOZADA MD) Immunizations Up To Date First/Initial COVID19 Vaccinat: DECEMBER 2020 (UJLIET LOZADA MD) Seasonal Allergies Seasonal Allergies: Yes (JULIET LOZADA MD) Past Medical History Surgeries: Yes (Kidney stone removal, ureter stent, BMT, Breast biopsy) Breast, Ear Surgery, Gallbladder, Hysterectomy Respiratory: Yes Asthma Cardiac: Yes (POTS, Dysautonia) Hypertension Neurological: No Genitourinary: No Gastrointestinal: No Musculoskeletal: No Endocrine: Yes (Prediabetic, Chronic Fatigue) Hypothyroidsim HEENT: No Cancer: No Psychosocial: Yes Depression Integumentary: No Blood Disorders: No (JULIET LOZADA MD) Physical Exam Vital Signs Vital Signs - First Documented 07/03/21 06:15 Temp 36.0 Pulse 86 Resp 14 B/P (MAP) 185/103 (130) Pulse Ox 97 O2 Delivery Room Air ([facility]) Vital Signs Capillary Refill : (JULIET LOZADA MD) Height, Weight, BMI Height: 5'4.00" Weight: 244lbs. oz. 110.999723nr; 38.00 BMI Method:Stated General Appearance: Anxious, Obese, Severe Distress (dramatically moaning and crying out every few seconds) Neck: Full Range of Motion, Non Tender, Supple Respiratory: Chest Non Tender, Lungs Clear, Normal Breath Sounds Cardiovascular: Regular Rate, Rhythm, Normal Peripheral Pulses Gastrointestinal: No Pulsatile Mass, Soft, Abnormal Bowel Sounds (hypoactive); No Rebound; Tenderness (reports that palpating left abdomen puts pressure in her back where she has pain) Rectal: Deferred Back: CVA Tenderness (L) Extremity: Normal Capillary Refill Neurologic/Psychiatric: Alert, Oriented x3, manufacturing tech II-XII Norm as Tested, Other (anxious) Skin: Normal Color, Warm/Dry (JULIET LOZADA MD) Progress/Results/Core Measures Suspected Sepsis SIRS Temperature: Pulse: Respiratory Rate: Laboratory Tests 07/03/21 06:35: White Blood Count 10.2 Blood Pressure / Mean: Laboratory Tests 07/03/21 06:35: Platelet Count 296 (JULIET LOZADA MD) Results/Orders Lab Results Laboratory Tests Test 07/03/21 06:35 07/03/21 07:36 Range/Units White Blood Count 10.2 4.3-11.0 10^3/uL Red Blood Count 4.95 3.80-5.11 10^6/uL Hemoglobin 14.8 11.5-16.0 g/dL Hematocrit 44 35-52 % Mean Corpuscular Volume 89 80-99 fL Mean Corpuscular Hemoglobin 30 25-34 pg Mean Corpuscular Hemoglobin Concent 34 32-36 g/dL Red Cell Distribution Width 12.6 10.0-14.5 % Platelet Count 296 130-400 10^3/uL Mean Platelet Volume 9.4 9.0-12.2 fL Immature Granulocyte % (Auto) 0 % Neutrophils (%) (Auto) 71 42-75 % Lymphocytes (%) (Auto) 22 12-44 % Monocytes (%) (Auto) 3 0-12 % Eosinophils (%) (Auto) 3 0-10 % Basophils (%) (Auto) 0 0-10 % Neutrophils # (Auto) 7.2 1.8-7.8 X 10^3 Lymphocytes # (Auto) 2.3 1.0-4.0 X 10^3 Monocytes # (Auto) 0.4 0.0-1.0 X 10^3 Eosinophils # (Auto) 0.3 0.0-0.3 10^3/uL Basophils # (Auto) 0.0 0.0-0.1 10^3/uL Immature Granulocyte # (Auto) 0.0 0.0-0.1 10^3/uL Sodium Level 136 135-145 MMOL/L Potassium Level 4.2 3.6-5.0 MMOL/L Chloride Level 99 98-107 MMOL/L Carbon Dioxide Level 23 21-32 MMOL/L Anion Gap 14 5-14 MMOL/L Blood Urea Nitrogen 17 7-18 MG/DL Creatinine 0.73 0.60-1.30 MG/DL Estimat Glomerular Filtration Rate 86 BUN/Creatinine Ratio 23 Glucose Level 193 H 70-105 MG/DL Calcium Level 9.8 8.5-10.1 MG/DL Corrected Calcium 8.5-10.1 MG/DL Total Bilirubin 0.3 0.1-1.0 MG/DL Aspartate Amino Transf (AST/SGOT) 34 5-34 U/L Alanine Aminotransferase (ALT/SGPT) 48 0-55 U/L Alkaline Phosphatase 84 40-136 U/L Total Protein 7.7 6.4-8.2 GM/DL Albumin 4.6 H 3.2-4.5 GM/DL Lipase 43 8-78 U/L Urine Color LIGHT RED Urine Clarity SLIGHTLY CLOUDY Urine pH 6.5 5-9 Urine Specific [place] 1.020 1.016-1.022 Urine Protein NEGATIVE NEGATIVE Urine Glucose (UA) TRACE H NEGATIVE Urine Ketones NEGATIVE NEGATIVE Urine Nitrite NEGATIVE NEGATIVE Urine Bilirubin NEGATIVE NEGATIVE Urine Urobilinogen 0.2 < = 1.0 MG/DL Urine Leukocyte Esterase NEGATIVE NEGATIVE Urine RBC (Auto) 3+ H NEGATIVE Urine RBC TNTC H /HPF Urine WBC NONE /HPF Urine Squamous Epithelial Cells 5-10 /HPF Urine Crystals NONE /LPF Urine Bacteria NEGATIVE /HPF Urine Casts NONE /LPF Urine Mucus NEGATIVE /LPF Urine Culture Indicated NO (MARK CODY DO) My Orders Orders - MARK CODY DO Fentanyl Inj (Sublimaze Injection) (07/03/21 07:15) (MARK CODY DO) Medications Given in ED Current Medications Medications Dose Ordered Sig/Natasha Route Start Time Stop Time Status Last Admin Dose Admin Fentanyl Citrate 50 mcg ONCE ONCE IVP 07/03/21 07:15 07/03/21 07:16 DC 07/03/21 07:38 50 MCG (MARK CODY DO) Vital Signs/I&O 07/03/21 06:15 Temp 36.0 Pulse 86 Resp 14 B/P (MAP) 185/103 (130) Pulse Ox 97 O2 Delivery Room Air (MARK CODY DO) Vital Signs/I&O Capillary Refill : (JULIET LOZADA MD) Progress Note : Progress Note Obtain urine and urine drug screen with her dramatic moaning and crying out as well as the fact she refused Toradol and wanted Dilaudid for pain. Check basic labs including lipase with her having left sided pain with n/v. CT scan of abdomen and pelvis without contrast to evaluate for kidney stone, pancreatitis, diverticulitis, colitis, pyelonephritis, other pathology to cause her complaint of severe left flank pain. Give IVF for hydration. Will pass care to Dr. Mark Cody at shift change pending testing and disposition. (JULIET LOZADA MD) Diagnostic Imaging Diagonstic Imaging: CT Plain Films/CT/US/NM/MRI: abdomen, pelvis (JULIET LOZADA MD) Transfer of Care Transfer of Care Time: 07:00 Care transferred to: Dr. Mark Cody (JULIET LOZADA MD) Departure Communication (Admissions) CT abdomen pelvis: 3 mm proximal left ureteral stone with mild hydronephrosis. H&P repeated from previous provider. Lab and imaging studies reviewed. Agreed with previous assessment. Patient with left-sided renal colic with poorly controlled pain despite repeat narcotic pain medication in the emergency department. Mild hydronephrosis with proximal stone only on CT imaging. UA pending. Will treat for urinary tract infection at present. Dr. Beltran to admit for symptomatic control. (MARK CODY DO) Impression Primary Impression: Acute left flank pain Additional Impression: Ureteral colic Disposition: ADMITTED INPATIENT Condition: Stable Admissions Decision to Admit Reason: Admit from ER (General) Decision to Admit/Date: Jul 03, 2021 Time/Decision to Admit Time: 08:06 (MARK CODY DO) Departure-Patient Inst. Decision time for Depature: 08:05 (MARK CODY DO) Referrals: GERHARD PANCHAL MD (PCP/Family) Primary Care Physician JULIET LOZADA MD Jul 03, 2021 06:37 MARK CODY DO Jul 03, 2021 08:06
[2021-07-03 07:01] LABS: BASOPHILS % (AUTO) 0 % (0-10); EOSINOPHILS # (AUTO) 0.3 10^3/uL (0.0-0.3); EOSINOPHILS % (AUTO) 3 % (0-10); HEMATOCRIT 44 % (35-52); HEMOGLOBIN 14.8 g/dL (11.5-16.0); LYMPHOCYTES # (AUTO) 2.3 X 10^3 (1.0-4.0); LYMPHOCYTES % (AUTO) 22 % (12-44); MEAN CORPUSCULAR HEMOGLOBIN 30 pg (25-34); MEAN CORPUSCULAR HGB CONC 34 g/dL (32-36); MEAN CORPUSCULAR VOLUME 89 fL (80-99); MEAN PLATELET VOLUME 9.4 fL (9.0-12.2); MONOCYTES # (AUTO) 0.4 X 10^3 (0.0-1.0); MONOCYTES % (AUTO) 3 % (0-12); NEUTROPHILS # (AUTO) 7.2 X 10^3 (1.8-7.8); NEUTROPHILS % (AUTO) 71 % (42-75); PLATELET COUNT 296 10^3/uL (130-400); WHITE BLOOD COUNT 10.2 10^3/uL (4.3-11.0)
--- NOTE | 2021-07-03 07:04 | Diagnostic Imaging Report ---
EXAMINATION: CT abdomen and pelvis without contrast. TECHNIQUE: Multiple contiguous axial images were obtained through the abdomen and pelvis without the use of intravenous contrast. All CT scans use one or more of the following dose optimizing techniques: automated exposure control, MA and/or KvP adjustment based on patient size and exam type or iterative reconstruction. HISTORY: left flank pain, hematuria, n/v, hx kidney stones COMPARISON: None available. FINDINGS: Lung bases: The lung bases are clear. Solid organs: The liver is normal. The gallbladder is surgically absent. There is no biliary ductal dilation. Pancreas is normal. Spleen is normal. Adrenal glands are normal. There is a 0.3 cm calculus within the proximal left ureter resulting in mild left hydronephrosis. There are multiple additional nonobstructing right renal calculi which measure up to 0.6 cm. Bowel: The stomach and small bowel are normal without obstruction. The colon is unremarkable. No findings of acute appendicitis. Peritoneum: There is no intraperitoneal free fluid or free air. No suspicious lymphadenopathy. Vasculature: Normal without aneurysm. Musculoskeletal: No suspicious osseous lesion or compression fracture. Pelvis: The uterus is surgically absent. No adnexal mass. The urinary bladder is normal. IMPRESSION: 1. A 0.3 cm proximal left ureteral calculus resulting in mild left hydronephrosis. 2. Additional nonobstructing right renal calculi measuring up to 0.6 cm. Dictated by: Dictated on workstation # [id number]
[2021-07-03] MEDS ORDERED: fentaNYL INJ 100 MCG/2 ML AMP IVP ONE ×2 (07:15→08:30)
[2021-07-03 07:21] LABS: ALANINE AMINOTRANSFERASE 48 U/L (0-55); ALBUMIN 4.6 GM/DL (3.2-4.5); ALKALINE PHOSPHATASE 84 U/L (40-136); BILIRUBIN,TOTAL 0.3 MG/DL (0.1-1.0); BUN/CREATININE RATIO 23; CALCIUM 9.8 MG/DL (8.5-10.1); CARBON DIOXIDE 23 MMOL/L (21-32); CHLORIDE 99 MMOL/L (98-107); CREATININE SERUM 0.73 MG/DL (0.60-1.30); GFR ESTIMATED 86; GLUCOSE 193 MG/DL (70-105); LIPASE 43 U/L (8-78); POTASSIUM 4.2 MMOL/L (3.6-5.0); SODIUM 136 MMOL/L (135-145); TOTAL PROTEIN 7.7 GM/DL (6.4-8.2)
[2021-07-03 08:02] LABS: BACTERIA,URINE NEGATIVE /HPF; BILIRUBIN,URINE NEGATIVE (NEGATIVE); CLARITY,URINE SLIGHTLY CLOUDY; COLOR,URINE LIGHT RED; GLUCOSE, URINE (UA) TRACE (NEGATIVE); KETONES,URINE NEGATIVE (NEGATIVE); LEUKOCYTE ESTERASE ,URINE NEGATIVE (NEGATIVE); NITRITE,URINE NEGATIVE (NEGATIVE); PH,URINE 6.5 (5-9); PROTEIN,URINE NEGATIVE (NEGATIVE); RBC,URINE TNTC /HPF
[2021-07-03 08:07] LABS: AMPHETAMINE SCREEN, URINE NEGATIVE (NEGATIVE); BARBITURATE SCREEN URINE NEGATIVE (NEGATIVE); BENZODIAZEPINES SCREEN URINE NEGATIVE (NEGATIVE); CANNABINOID SCREEN, URINE NEGATIVE (NEGATIVE); COCAINE SCREEN URINE NEGATIVE (NEGATIVE); METHADONE STAT NEGATIVE (NEGATIVE); METHAMPHETAMINE SCREEN URINE S NEGATIVE (NEGATIVE); OPIATE SCREEN URINE NEGATIVE (NEGATIVE); OXYCODONE STAT NEGATIVE (NEGATIVE); PROPOXYPHENE STAT NEGATIVE (NEGATIVE); TRICYCLIC ANTIDEPRESSANTS SCRE NEGATIVE (NEGATIVE)
[2021-07-03] MEDS: fentaNYL INJ 100 MCG/2 ML AMP IVP PRN ×2 (08:27→11:09)
[2021-07-03] MEDS ORDERED: ONDANSETRON 4 MG/2 ML (SDV) Z0FRAN IV PRN (11:30)
[2021-07-03] MEDS: NS IV 1000 ML 1,000 ML IV SCH ×2 (12:58→19:50)
[2021-07-03] MEDS: fentaNYL INJ 100 MCG/2 ML AMP IV PRN ×2 (14:03→16:44)
[2021-07-03] MEDS ORDERED: FLU QUADRIvalent (3YOA+) 60 mcg/0.5 ml 2021-22(AFLURIA) IM ONE (15:00)
[2021-07-03] MEDS ORDERED: hydrALAZINE (APESOLINE) 20 MG/ML VIAL IV PRN (16:30)
[2021-07-03] MEDS ORDERED: NALOXONE 0.4 MG/ML 1 ML (NARCAN) VIAL IV PRN (17:30)
[2021-07-03] MEDS ORDERED: NS IV 1000 ML 1,000 ML IV SCH (17:30)
[2021-07-03] MEDS ORDERED: METOCLOPRAMIDE INJ 10 MG/2 ML (REGLAN) IV PRN (17:30)
[2021-07-03] MEDS ORDERED: diphenhydrAMINE 50 MG/ML INJ (BENADRYL) IV PRN (17:30)
[2021-07-03] MEDS ORDERED: KETOROLAC 30 MG/ML VIAL IVP SCH (19:00)
[2021-07-03] MEDS: fentaNYL INJ 1,000 MCG in NS (IVPB) 80 ML IV SCH (19:45)
[2021-07-04 00:29] VITALS: BP 156/98
[2021-07-04 03:33] VITALS: BP 143/90
[2021-07-04] MEDS: ONDANSETRON 4 MG/2 ML (SDV) Z0FRAN IV PRN ×3 (05:31→21:19)
[2021-07-04] MEDS: NS IV 1000 ML 1,000 ML IV SCH ×4 (05:32→21:23)
[2021-07-04 06:14] LABS: BASOPHILS % (AUTO) 0 % (0-10); EOSINOPHILS # (AUTO) 0.1 10^3/uL (0.0-0.3); EOSINOPHILS % (AUTO) 1 % (0-10); HEMATOCRIT 40 % (35-52); HEMOGLOBIN 13.4 g/dL (11.5-16.0); LYMPHOCYTES % (AUTO) 16 % (12-44); MEAN CORPUSCULAR HEMOGLOBIN 30 pg (25-34); MEAN CORPUSCULAR HGB CONC 34 g/dL (32-36); MEAN CORPUSCULAR VOLUME 89 fL (80-99); MEAN PLATELET VOLUME 9.2 fL (9.0-12.2); MONOCYTES # (AUTO) 0.7 10^3/uL (0.0-1.0); MONOCYTES % (AUTO) 6 % (0-12); NEUTROPHILS # (AUTO) 9.7 10^3/uL (1.8-7.8); NEUTROPHILS % (AUTO) 78 % (42-75); PLATELET COUNT 270 10^3/uL (130-400); WHITE BLOOD COUNT 12.5 10^3/uL (4.3-11.0)
[2021-07-04 06:44] LABS: CALCIUM 8.9 MG/DL (8.5-10.1); CREATININE SERUM 1.12 MG/DL (0.60-1.30); POTASSIUM 3.6 MMOL/L (3.6-5.0)
[2021-07-04 08:14] VITALS: BP 158/97
[2021-07-04] MEDS: SENNA W/DOCUSATE (SENOKOT S) TABLET PO SCH (08:44)
[2021-07-04 12:09] VITALS: BP 143/91
[2021-07-04] MEDS ORDERED: ALBU18HF2 INH (13:52)
[2021-07-04] MEDS ORDERED: GLIM2TAB4 PO (13:52)
[2021-07-04] MEDS ORDERED: CETI10TA17 PO (13:52)
[2021-07-04] MEDS ORDERED: HYDR12.56 PO (13:52)
[2021-07-04] MEDS ORDERED: THYROID SUPPORT PO (13:52)
[2021-07-04] MEDS ORDERED: MULT-1136 PO (13:52)
--- NOTE | 2021-07-04 13:53 | Diagnostic Imaging Report ---
INDICATION: Left ureteral stone. Numerous calculi overlie the right renal shadow. There is a tiny calcific density that projects between the L2 and L3 transverse processes which may represent the proximal ureteric calculus noted on CT. Bowel gas pattern is unremarkable. Numerous calcifications in the pelvis likely represent phleboliths. IMPRESSION: There is a calcific density projected between the left 2nd and 3rd transverse processes which may represent proximal ureteric calculus noted by CT. There are also numerous right-sided renal calculi. Dictated by: Dictated on workstation # [id number]
[2021-07-04 16:00] VITALS: BP 155/99
[2021-07-04] MEDS: fentaNYL INJ 1,000 MCG in NS (IVPB) 80 ML IV SCH (18:24)
[2021-07-04 19:06] VITALS: BP 156/96
--- NOTE | 2021-07-04 21:15 | CONSULTATION REPORT ---
DATE OF SERVICE: 07/04/2021 ATTENDING PHYSICIAN: Dr. Beltran. SUMMARY: After reviewing the patient's record, her chart, her H and P, her CAT scan, this is a 46-year-old lady chronic stone former with multiple stones in the past as well as surgical procedures, who has been admitted with left flank pain, nausea and vomiting and was found to have a left ureteral stone causing obstruction to the kidney. She continues to have pain. She was not in acute distress when I saw her. IMPRESSION: 1. Left ureteral stone with pain, obstruction. 2. Bilateral renal stones. 3. History of stones. RECOMMENDATION: Options were fully discussed with the patient. Observation for spontaneous passage versus OR tomorrow as a left ureteroscopy, possible ESWL and related procedures. This was fully explained to her and she elected to proceed with the surgery tomorrow unless she passes the stone tonight. Preops were ordered as well as consent. CC: Dr. Beltran -- requested, unable to deliver. Job ID: [id number] DocumentID: [id number] Dictated Date: 07/04/2021 17:43:13 Proposal Consultant Date: 07/04/2021 21:14:07 Dictated By: JENNIE HOUSTON MD
--- NOTE | 2021-07-04 22:30 | History & Physical-Hospitalist ---
History of Present Illness HPI/Chief Complaint Selina Glover is a 46 year old female with PMH kidney stones who presented with flank pain. She has a history of stones requiring surgical intervention. She has been having nausea and vomiting. She is still having pain on my exam. She denies fevers. Source: patient Exam Limitations: no limitations Date Seen 07/04/21 Time Seen by a Provider: 11:05 Attending Physician Yuri Smith MD PCP Praneeth Orellana MD Referring Physician Date of Admission Jul 03, 2021 at 09:30 Home Medications & Allergies Home Medications Reviewed patient Home Medication Reconciliation performed by pharmacy medication reconciliations bomb technician and/or nursing. Patients Allergies have been reviewed. Allergies Allergies Coded Allergies Penicillins (Verified Allergy, Severe, anaphylaxis, 10/13/18) Past Qerdugq-Trxhuy-Jruysr Hx Patient Social History Tobacco Use?: Yes Tobacco type used: Cigarettes Smoking Status: Light Tobacco Smoker Use of E-Cig and/or Vaping dev: No Substance use?: No Alcohol Use?: No Pt feels they are or have been: No Immunizations Up To Date First/Initial COVID19 Vaccinat: December 2020 Tetanus Booster (TDap): Less Than 5 Years Hepatitis A: Yes Hepatitis B: Yes Seasonal Allergies Seasonal Allergies: Yes Current Status status: No Advance Directives: No Communicates: Verbally Primary Language: Tamazight Preferred Spoken Language: Tamazight Is interpretation needed?: No Implanted or Applied Medical D: Orthopedic hardware Past Medical History Surgeries: Breast, Ear Surgery, Gallbladder, Hysterectomy Asthma Hypertension Hypothyroidsim Depression Blood Disorders: No Family Medical History No Pertinent Family Hx Review of Systems Constitutional: no symptoms reported EENTM: no symptoms reported Respiratory: no symptoms reported Cardiovascular: no symptoms reported Gastrointestinal: no symptoms reported Genitourinary: no symptoms reported Musculoskeletal: back pain Skin: no symptoms reported Psychiatric/Neurological: No Symptoms Reported Physical Exam Physical Exam Vital Signs Vital Signs - First Documented 07/03/21 06:15 Temp 36.0 Pulse 86 Resp 14 B/P (MAP) 185/103 (130) Pulse Ox 97 O2 Delivery Room Air Capillary Refill : Less Than 3 Seconds Height, Weight, BMI Height: 5'4.00" Weight: 244lbs. oz. 110.974477kg; 41.60 BMI Method:Stated General Appearance: Moderate Distress (uncomfortable), Obese HEENT: PERRL/EOMI, Pharynx Normal Neck: Normal Inspection, Supple Respiratory: Lungs Clear, Normal Breath Sounds, No Respiratory Distress Cardiovascular: Regular Rate, Rhythm, No Edema, No Murmur Gastrointestinal: Normal Bowel Sounds, Non Tender, Soft Back: CVA Tenderness (L) Extremity: Normal Inspection, No Pedal Edema Neurologic/Psychiatric: Alert, Oriented x3 Skin: Normal Color, Warm/Dry Results Results/Procedures Labs Laboratory Tests 07/03/21 06:35 07/04/21 05:26 Patient resulted labs reviewed. 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
[2021-07-04] MEDS ORDERED: MONTELUKAST 10 MG (SINGULAIR) TAB PO SCH (23:00)
[2021-07-04] MEDS ORDERED: LORATADINE (CLARITIN) 10 MG TAB PO SCH (23:00)
[2021-07-05] VITALS (11 sets, daily range): BP systolic 129–158; BP diastolic 83–98
[2021-07-05] MEDS ORDERED: ACETAMINOPHEN 500 MG TAB (TYLENOL) PO PRN (01:00)
[2021-07-05] MEDS: NS IV 1000 ML 1,000 ML IV SCH ×2 (06:23→09:57)
[2021-07-05] MEDS ORDERED: LEVOTHYROXINE 50 MCG (LEVOTHROID) TAB PO SCH (07:00)
--- NOTE | 2021-07-05 07:11 | Progress Note-Pre Operative ---
Pre-Operative Progress Note H&P Reviewed The H&P was reviewed, patient examined and no changes noted. Date Seen by Provider: Jul 05, 2021 Time Seen by Provider: 07:11 Date H&P Reviewed: Jul 05, 2021 Time H&P Reviewed: 07:11 Pre-Operative Diagnosis: LT PROXIMAL URETERAL STONE JENNIE HOUSTON MD Jul 05, 2021 07:11
[2021-07-05] MEDS ORDERED: VENlafaxine XR 75 MG (EFFEXOR XR) CAP PO SCH (09:00)
[2021-07-05] MEDS: SENNA W/DOCUSATE (SENOKOT S) TABLET PO SCH (09:36)
[2021-07-05] MEDS ORDERED: fentaNYL INJ 100 MCG/2 ML AMP ONE (09:50)
[2021-07-05] MEDS ORDERED: KETOROLAC 30 MG/ML VIAL ONE (09:50)
[2021-07-05] MEDS ORDERED: FUROSEMIDE 40 MG/4 ML INJ (LASIX) ONE (09:50)
[2021-07-05] MEDS ORDERED: MIDAZOLAM 2 MG/2 ML (VERSED) VIAL ONE (09:50)
[2021-07-05] MEDS ORDERED: LIDOCAINE PF 2% 5 ML (XYLOCAINE) VIAL ONE (09:50)
[2021-07-05] MEDS ORDERED: proPOfol 200 MG/20 ML (DIPRIVAN) VIAL IV ONE (09:50)
[2021-07-05] MEDS ORDERED: ONDANSETRON 4 MG/2 ML (SDV) Z0FRAN ONE (09:50)
[2021-07-05 10:04] LABS: CALCIUM 8.8 MG/DL (8.5-10.1); CREATININE SERUM 0.86 MG/DL (0.60-1.30); POTASSIUM 3.8 MMOL/L (3.6-5.0)
[2021-07-05] MEDS: LACTATED RINGERS 1,000 ML IV PRN ×2 (10:15→11:16)
[2021-07-05] MEDS ORDERED: PROPOFOL INJECTION 50 ML IV ONE ×2 (10:17→11:26)
--- NOTE | 2021-07-05 10:24 | Diagnostic Imaging Report ---
EXAMINATION: Abdomen, 1 view. HISTORY: Left ureteral stone. COMPARISON: None available. FINDINGS: There is a moderate amount of gas and stool throughout the colon. Nonobstructive bowel gas pattern. Multiple right ureteral stones are present. Previously seen calcific density on prior radiograph is not seen on today's exam. The osseous structures are intact. IMPRESSION: 1. The previously seen density within the expected location of the left ureter on prior radiograph is not seen on today's exam. 2. Multiple right renal calculi. Dictated by: Dictated on workstation # [id number]
--- NOTE | 2021-07-05 11:04 | Progress Note-Post Operative ---
Post-Operative Progess Note Surgeon (s)/Piece Hand (s) Surgeon JENNIE HOUSTON MD Piece Hand: NONE Pre-Operative Diagnosis LT PROXIMAL URETERAL STONE Post-Operative Diagnosis LT DISTAL URETERAL STONE Procedure & Operative Findings Date of Procedure 07/05/21 Procedure Performed/Findings LT ESWL Anesthesia Type GENERAL Estimated Blood Loss Estimated blood loss (mL): NONE Specimens/Packing Specimens Removed NONE Packing: NONE JENNIE HOUSTON MD Jul 05, 2021 11:04
--- NOTE | 2021-07-05 17:15 | OPERATIVE REPORT ---
DATE OF SERVICE: 07/05/2021 PREOPERATIVE DIAGNOSIS: Left proximal ureteral stone. POSTOPERATIVE DIAGNOSIS: Left distal ureteral stone. OPERATION PERFORMED: Left ESWL. SURGEON: Camacho Houston MD ANESTHESIA: General. COMPLICATIONS: None. DESCRIPTION OF PROCEDURE: Under satisfactory general anesthesia, the patient in supine position on the ESWL table, the left proximal ureteral stone had moved down in the distal portion of the ureter, we localized it and delivered the shocks, rising the kV gradually to 6, a total of 2000 shocks completely fragmented the stone that was not visible anymore. The patient received 40 mg of Lasix and 30 mg of Toradol IV at the end of the procedure. She tolerated the procedure and anesthesia well and was sent to recovery room in stable condition. CC: Dr. Phyllis Beltran - requested, unable to deliver. Job ID: [id number] DocumentID: [id number] Dictated Date: 07/05/2021 11:18:36 Manager Intern Date: 07/05/2021 17:14:42 Dictated By: CAMACHO HOUSTON MD
--- NOTE | 2021-07-05 17:23 | Discharge Summary ---
Discharge Summary Hospital Course Was the Problem List Reviewed?: Yes Problems/Dx: (1) Nephrolithiasis Status: Acute (2) Hydronephrosis Status: Acute Qualifiers: Qualified Codes: N13.2 - Hydronephrosis with renal and ureteral calculous obstruction (3) MAURY (acute kidney injury) Status: Acute (4) HTN (hypertension) Status: Chronic (5) Hypothyroidism Status: Chronic (6) Morbid obesity Status: Chronic Hospital Course Date of Admission: Jul 03, 2021 at 09:30 Admission Diagnosis : Nephrolithiasis with hydronephrosis Family Physician/Provider: Praneeth Orellana MD Date of Discharge: 07/05/21 Discharge Diagnosis: Nephrolithiasis with hydronephrosis Hospital Course: Selina Glover is a 46 year old female with PMH HTN, hypothyroidism, morbid obesity, kidney stones, who presented with flank pain and was admitted with kidney stones and hydronephrosis. She also had an acute kidney injury. She was treated with IV fluids and pain medications. Urology was consulted and assisted with her care. She underwent lithotripsy and stone removal. She was discharged home in stable condition. Labs and Pending Lab Test: Laboratory Tests 07/05/21 09:17: Sodium Level 139, Potassium Level 3.8, Chloride Level 108H, Carbon Dioxide Level 20L, Anion Gap 11, Blood Urea Nitrogen 10, Creatinine 0.86, Estimat Glomerular Filtration Rate 71, BUN/Creatinine Ratio 12, Glucose Level 144H, Calcium Level 8.8 Home Meds Active Reported [Thyroid Support] Cap 1 Ea PO DAILY Multivitamin 1 Each Tablet 1 Each PO DAILY Cetirizine HCl 10 Mg Tablet 10 Mg PO HS Hydrochlorothiazide 12.5 Mg Tablet 12.5 Mg PO HS Ventolin Hfa (Albuterol Sulfate) 18 Gm Hfa.aer.ad 2 Puff INH Q4H PRN Glimepiride 2 Mg Tablet 2 Mg PO BID Desvenlafaxine Succinate ER (Desvenlafaxine Succinate) 50 Mg Tab.er.24h 50 Mg PO DAILY Levothyroxine Sodium 50 Mcg Tablet 50 Mcg PO DAILY Montelukast Sodium 10 Mg Tablet 10 Mg PO HS Assessment/Pt Instructions Take medications as prescribed. Follow up with your PCP. Return with worsening pain, vomiting, or if you feel like you are getting worse. Discharge Planning: <30 minutes discharge planning Discharge Instructions Discharge Diet: No Restrictions Activity as Tolerated: Yes Discharge Physical Examination Vital Signs Vital Signs Date Time Temp Pulse Resp B/P (MAP) Pulse Ox O2 Delivery O2 Flow Rate FiO2 07/05/21 16:25 36.9 90 20 151/96 (114) 94 Room Air 07/05/21 11:50 2 General Appearance: No Apparent Distress, Obese Respiratory: Lungs Clear, Normal Breath Sounds, No Respiratory Distress Cardiovascular: Regular Rate, Rhythm, No Edema, No Murmur Gastrointestinal: Normal Bowel Sounds, Non Tender, Soft Extremity: Normal Inspection, No Pedal Edema Skin: Normal Color, Warm/Dry Neurologic/Psychiatric: Alert, Oriented x3, No Motor/Sensory Deficits, Normal Mood/Affect Allergies: Coded Allergies: Penicillins (Verified Allergy, Severe, anaphylaxis, 10/13/18) Discharge Summary Date of Admission Jul 03, 2021 at 09:30 Date of Discharge Discharge Date: Jul 05, 2021 Discharge Time: 17:22 Admission Diagnosis Nephrolithiasis Consults/Procedures Consulations Urology Procedures Lithotripsy Discharge Diagnosis Nephrolithiasis Hydronephrosis Acute kidney injury (1) Nephrolithiasis Status: Acute (2) Hydronephrosis Status: Acute Qualifiers: Qualified Codes: N13.2 - Hydronephrosis with renal and ureteral calculous obstruction (3) MAURY (acute kidney injury) Status: Acute (4) HTN (hypertension) Status: Chronic (5) Hypothyroidism Status: Chronic (6) Morbid obesity Status: Chronic YURI SMITH MD Jul 05, 2021 17:23
--- NOTE | 2021-07-06 13:38 | Anesthesia-General Post-Op ---
General Patient Condition Mental Status/LOC: Same as Preop Cardiovascular: Satisfactory Nausea/Vomiting: Absent Respiratory: Satisfactory Pain: Controlled Complications: Absent Post Op Complications Complications None Follow Up Care/Instructions Patient Instructions None needed. Anesthesia/Patient Condition Patient Condition Patient is already discharged to home but she was doing well, no complaints, stable vital signs, no apparent adverse anesthesia problems prior to her discharge. FRANTZ POPE DO Jul 06, 2021 13:38
== END 2021-07-05 19:00 | disposition home or self-care (01) ==
LOC: EDUNIT# 06:10 → ER FS 06:14 → 4TH 09:30
PROVIDERS: ADMIT Internal Medicine; ATTEND Internal Medicine
DX: N13.2 Hydronephrosis with renal and ureteral calculous obstruction (principal); I10 Essential (primary) hypertension; J45.909 Unspecified asthma, uncomplicated; F32.A Depression, unspecified; F17.210 Nicotine dependence, cigarettes, uncomplicated; E03.9 Hypothyroidism, unspecified; N17.9 Acute kidney failure, unspecified; K21.9 Gastro-esophageal reflux disease without esophagitis; E66.01 Morbid (severe) obesity due to excess calories; Z79.899 Other long term (current) drug therapy; Z68.41 Body mass index [BMI] 40.0-44.9, adult; Z79.890 Hormone replacement therapy
CPT/HCPCS: 36415; 50590; 74018 ×2; 74176; 80048 ×2; 80053; 80306; 81000; 83690; 85025 ×2; 87081; 94760 ×2; 99284; G0378

== ENCOUNTER → 2021-07-12 | Outpatient (CLI) | payer BC ==
[~2021-07-12] MED LIST changes: +ALBU18HF2 INH; +CETI10TA17 PO; +GLIM2TAB4 PO; +HYDR12.56 PO; +MULT-1136 PO; +THYROID SUPPORT PO
--- NOTE | 2021-07-12 14:52 | Diagnostic Imaging Report ---
INDICATION: Right flank pain The gallbladder appears to be surgically absent. There are numerous calculi in the right kidney which are predominantly in the upper pole. There is some in the interpolar and lower pole calyces. Bowel gas pattern is normal. IMPRESSION: Right nephrolithiasis. There may be some calculi fragments in the distal left ureter. Dictated by: Dictated on workstation # [id number]
== END ==
LOC: RAD 14:02
PROVIDERS: ATTEND Urology
DX: N20.0 Calculus of kidney (principal)
CPT/HCPCS: 74018

== ENCOUNTER → 2021-07-13 | Outpatient (CLI) | payer BC ==
--- NOTE | 2021-07-13 16:31 | Diagnostic Imaging Report ---
EXAMINATION: CT abdomen and pelvis without contrast. TECHNIQUE: Multiple contiguous axial images were obtained through the abdomen and pelvis without the use of intravenous contrast. All CT scans use one or more of the following dose optimizing techniques: automated exposure control, MA and/or KvP adjustment based on patient size and exam type or iterative reconstruction. HISTORY: Right flank pain COMPARISON: 07/03/2021 FINDINGS: Limited views of the lower thorax are unremarkable. The liver is normal without focal lesion. There is no biliary ductal dilation. Gallbladder is surgically absent. Pancreas is normal. Spleen is normal. Adrenal glands are normal. The left ureteral stone is resolved. Left hydronephrosis is resolved. There are numerous right-sided renal calculi measuring up to 6 mm. No suspicious renal lesions. Urinary bladder is normal. Bowel is normal in caliber without obstruction or inflammation. No free fluid or air. No abdominal or pelvic lymphadenopathy. Aorta is normal in caliber without aneurysm. There are no suspicious osseus lesions. IMPRESSION: 1. Left ureteral stone is resolved and there is no longer hydronephrosis. 2. Stable right renal stones. Dictated by: Dictated on workstation # [id number]
== END ==
LOC: RAD FS 15:41
PROVIDERS: ATTEND Urology
DX: N20.0 Calculus of kidney (principal)
CPT/HCPCS: 74176

== ENCOUNTER 2021-07-15 05:39 | Outpatient (CLI) | payer BC ==
[~2021-07-15] VITALS: Ht 160 cm; Wt 102.3 kg
== END 2021-07-15 14:28 | disposition home or self-care (01) ==
LOC: PREOP 05:39
PROVIDERS: ATTEND Urology
DX: Z01.818 Encounter for other preprocedural examination (principal)

== ENCOUNTER 2021-07-19 05:49 | Day surgery (SDC) | payer BC ==
[~2021-07-19] VITALS: Ht 160 cm; Wt 102.3 kg
[2021-07-19] VITALS (10 sets, daily range): BP systolic 131–171; BP diastolic 87–108
[2021-07-19] MEDS: LACTATED RINGERS 1,000 ML IV PRN ×2 (06:40→08:20)
[2021-07-19] MEDS ORDERED: MIDAZOLAM 2 MG/2 ML (VERSED) VIAL ONE ×2 (07:03→07:41)
[2021-07-19] MEDS ORDERED: FUROSEMIDE 40 MG/4 ML INJ (LASIX) ONE (07:03)
[2021-07-19] MEDS ORDERED: fentaNYL INJ 100 MCG/2 ML AMP ONE (07:03)
[2021-07-19] MEDS ORDERED: LIDOCAINE PF 2% 5 ML (XYLOCAINE) VIAL ONE (07:03)
[2021-07-19] MEDS ORDERED: PROPOFOL INJECTION 50 ML IV ONE (07:03)
[2021-07-19] MEDS ORDERED: KETOROLAC 30 MG/ML VIAL ONE (07:03)
--- NOTE | 2021-07-19 07:17 | Diagnostic Imaging Report ---
ABDOMEN/KUB 1VIEW INDICATION: Lithotripsy. COMPARISON: 07/12/2021 TECHNIQUE: AP view of the abdomen FINDINGS: Clustered cloudlike calcifications in the upper pole of the right kidney are unchanged. Stable surgical clips in the right upper quadrant likely from cholecystectomy. Anastomotic staple line in the lower left hemipelvis is unchanged. No new abnormal soft tissue mineralizations. Nonobstructive bowel gas pattern. The liver is enlarged measuring approximately 25 cm. IMPRESSION: 1. No change of right renal calculi. Dictated by: Dictated on workstation # [id number]
--- NOTE | 2021-07-19 07:19 | Progress Note-Pre Operative ---
Pre-Operative Progress Note H&P Reviewed The H&P was reviewed, patient examined and no changes noted. Date Seen by Provider: Jul 19, 2021 Time Seen by Provider: 07:18 Date H&P Reviewed: Jul 19, 2021 Time H&P Reviewed: 07:18 Pre-Operative Diagnosis: RT RENAL STONES JENNIE HOUSTON MD Jul 19, 2021 07:19
--- NOTE | 2021-07-19 07:38 | Progress Note-Post Operative ---
Post-Operative Progess Note Surgeon (s)/Chore Tender (s) Surgeon JENNIE HOUSTON MD Chore Tender: NONE Pre-Operative Diagnosis RT RENAL STONES Post-Operative Diagnosis SAME Procedure & Operative Findings Date of Procedure 07/19/21 Procedure Performed/Findings RT ESWL Anesthesia Type GENERAL Estimated Blood Loss Estimated blood loss (mL): NONE Specimens/Packing Specimens Removed NONE Packing: NONE JENNIE HOUSTON MD Jul 19, 2021 07:38
--- NOTE | 2021-07-19 07:40 | Discharge Inst-Urology ---
Discharge Inst-Urology Reconcile Patient Problems Problems Reviewed?: Yes Final Diagnosis RT RENAL STONES Patient Instructions/Follow Up Plan/Assessment/Instructions Please make appointment to been seen in office Tuesday 08/01, KUB prior to it. KUB on way home Post ESWL instructions Increase oral fluids for 48 hours and then as needed. Diet and Activity as tolerated. If questions or concerns contact your physician Or seek help at emergency department. JENNIE HOUSTON MD Jul 19, 2021 07:40
--- NOTE | 2021-07-19 08:14 | Anesthesia-General Post-Op ---
General Patient Condition Mental Status/LOC: Same as Preop Cardiovascular: Satisfactory Nausea/Vomiting: Absent Respiratory: Satisfactory Pain: Controlled Complications: Absent Post Op Complications Complications None Follow Up Care/Instructions Patient Instructions None needed. Anesthesia/Patient Condition Patient Condition Patient is doing well, no complaints, stable vital signs, no apparent adverse anesthesia problems. No complications reported per nursing. TIFFANY QUEEN CRNA Jul 19, 2021 08:14
[2021-07-19] MEDS ORDERED: MEPERIDINE (DEMEROL) INJ 50 MG/ML IVP ONE (08:15)
[2021-07-19] MEDS ORDERED: ONDANSETRON 4 MG/2 ML (SDV) Z0FRAN IVP PRN (08:15)
[2021-07-19] MEDS ORDERED: PROMETHAZINE INJ 25 MG/ML (PHENERGAN) AMP IVP ONE (08:15)
[2021-07-19] MEDS ORDERED: morphine INJ 10 MG/ML 1ML (SYR OR VIAL) IVP ONE (08:15)
[2021-07-19] MEDS ORDERED: fentaNYL INJ 100 MCG/2 ML AMP IVP ONE (08:15)
[2021-07-19] MEDS ORDERED: KETO10TA PO (09:35)
[2021-07-19] MEDS ORDERED: NITR-65 PO (09:35)
[2021-07-19] MEDS ORDERED: TMSL.4C PO (09:35)
--- NOTE | 2021-07-19 10:23 | Diagnostic Imaging Report ---
EXAM: ABDOMEN/KUB 1VIEW. INDICATION: Right renal stone. Post ESWL. COMPARISON: Abdominal radiograph 07/19/2021. CT abdomen/pelvis without contrast 07/13/2021. FINDINGS: Several calcifications in the upper pole of the right kidney are similar to the prior exams. Cholecystectomy clips. Nonspecific bowel gas pattern. No acute osseous findings. IMPRESSION: Stable appearing calcifications in the upper pole of the right kidney. No significant change. Dictated by: Dictated on workstation # [id number]
--- NOTE | 2021-07-19 13:00 | OPERATIVE REPORT ---
DATE OF SERVICE: 07/19/2021 PREOPERATIVE DIAGNOSIS: Right renal stones. POSTOPERATIVE DIAGNOSIS: Right renal stones. OPERATION PERFORMED: Right ESWL. SURGEON: Camacho Houston MD. ANESTHESIA: General. COMPLICATIONS: None. DESCRIPTION OF PROCEDURE: Under satisfactory general anesthesia, the patient in supine position on the ESWL table, the right renal stones were localized. Shocks were delivered at kV of 6 moving around the different locations of the stones. After delivering 2500 shocks at kV of 6, the results looked pretty good. The patient received 40 mg of Lasix and 30 mg of Toradol IV. She tolerated the procedure and anesthesia well and was sent to recovery room in a stable condition. Job ID: [id number] DocumentID: [id number] Dictated Date: 07/19/2021 07:55:54 [employer] Miller Date: 07/19/2021 13:00:15 Dictated By: CAMACHO HOUSTON MD
== END 2021-07-19 10:10 | disposition home or self-care (01) ==
LOC: SDC 05:49
PROVIDERS: ATTEND Urology
DX: N20.0 Calculus of kidney (principal); R73.03 Prediabetes; I10 Essential (primary) hypertension; J45.909 Unspecified asthma, uncomplicated; E66.9 Obesity, unspecified; I49.8 Other specified cardiac arrhythmias; F17.200 Nicotine dependence, unspecified, uncomplicated; Z79.899 Other long term (current) drug therapy; Z68.41 Body mass index [BMI] 40.0-44.9, adult
CPT/HCPCS: 74018; 82947; 87081

== ENCOUNTER 2022-08-13 12:47 | Emergency (ER) | payer BC ==
[~2022-08-13] VITALS: Ht 160 cm; Wt 107.2 kg
[~2022-08-13 12:47] MED LIST changes: +KETO10TA PO; +NITR-65 PO; +TMSL.4C PO
[2022-08-13] MEDS ORDERED: LACTATED RINGERS 1,000 ML IV STA (12:57)
[2022-08-13] MEDS ORDERED: ONDANSETRON 4 MG/2 ML (SDV) Z0FRAN IVP ONE (13:00)
[2022-08-13] MEDS ORDERED: FAMOTIDINE 20 MG (PEPCID) TABLET PO STA (13:01)
[2022-08-13 13:04] LABS: BASOPHILS % (AUTO) 0 % (0-10); EOSINOPHILS # (AUTO) 0.2 10^3/uL (0.0-0.3); EOSINOPHILS % (AUTO) 3 % (0-10); HEMATOCRIT 41 % (35-52); HEMOGLOBIN 14.3 g/dL (11.5-16.0); LYMPHOCYTES # (AUTO) 2.8 10^3/uL (1.0-4.0); LYMPHOCYTES % (AUTO) 31 % (12-44); MEAN CORPUSCULAR HEMOGLOBIN 30 pg (25-34); MEAN CORPUSCULAR HGB CONC 35 g/dL (32-36); MEAN CORPUSCULAR VOLUME 86 fL (80-99); MEAN PLATELET VOLUME 8.8 fL (9.0-12.2); MONOCYTES # (AUTO) 0.4 10^3/uL (0.0-1.0); MONOCYTES % (AUTO) 5 % (0-12); NEUTROPHILS # (AUTO) 5.7 10^3/uL (1.8-7.8); NEUTROPHILS % (AUTO) 62 % (42-75); PLATELET COUNT 301 10^3/uL (130-400); WHITE BLOOD COUNT 9.2 10^3/uL (4.3-11.0)
[2022-08-13 13:04] LABS: BILIRUBIN,URINE NEGATIVE (NEGATIVE); COLOR,URINE YELLOW; GLUCOSE, URINE (UA) NEGATIVE (NEGATIVE); KETONES,URINE NEGATIVE (NEGATIVE); LEUKOCYTE ESTERASE ,URINE NEGATIVE (NEGATIVE); NITRITE,URINE NEGATIVE (NEGATIVE); PROTEIN,URINE NEGATIVE (NEGATIVE)
[2022-08-13 13:08] LABS: BACTERIA,URINE MODERATE /HPF; CLARITY,URINE SLIGHTLY CLOUDY; SQUAMOUS EPITHELIAL CELL,UR 25-50 /HPF
[2022-08-13] MEDS ORDERED: ANTACID SUSP 30 ML UDC (MYLANTA) PO ONE (13:15)
[2022-08-13] MEDS ORDERED: IOHEXOL 350 MG/ML 100 ML (OMNIPAQUE 350) VIAL IV ONE (13:15)
[2022-08-13] MEDS ORDERED: CATHETER FLUSH 10 ML SYR IV PRN (13:15)
[2022-08-13] MEDS ORDERED: NS 100 ML (IVPB) BAG IV ONE (13:15)
[2022-08-13] MEDS ORDERED: HOLD METFORMIN - RECEIVED CONTRAST 20 ML VIAL IV SCH (13:15)
[2022-08-13] MEDS ORDERED: LIDOCAINE 2% VISCOUS 15 ML UDC PO ONE (13:15)
[2022-08-13 13:23] LABS: ALANINE AMINOTRANSFERASE 58 U/L (0-55); ALBUMIN 4.8 GM/DL (3.2-4.5); ALKALINE PHOSPHATASE 100 U/L (40-136); BILIRUBIN,TOTAL 0.5 MG/DL (0.1-1.0); BUN/CREATININE RATIO 20; CALCIUM 9.4 MG/DL (8.5-10.1); CARBON DIOXIDE 20 MMOL/L (21-32); CHLORIDE 101 MMOL/L (98-107); CREATININE SERUM 0.66 MG/DL (0.60-1.30); GFR ESTIMATED 109; GLUCOSE 128 MG/DL (70-105); LIPASE 33 U/L (8-78); MAGNESIUM 2.4 MG/DL (1.6-2.4); POTASSIUM 4.3 MMOL/L (3.6-5.0); SODIUM 135 MMOL/L (135-145); TOTAL PROTEIN 7.6 GM/DL (6.4-8.2)
--- NOTE | 2022-08-13 13:40 | ED Abdominal Pain ---
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 She states she began having a headache on , abdominal pain on Sunday, and nausea/vomiting/diarrhea today. Source of Information: Patient Exam Limitations: No Limitations History of Present Illness Date Seen by Provider: Aug 13, 2022 Time Seen by Provider: 12:49 Initial Comments 47-year-old female coming in due to several days of nonbloody nonbilious vomiting, upper abdominal pain, and nonbloody diarrhea. No true fever that she believes. Denies any cough, congestion, chest pain, shortness of breath, focal weakness or numbness, rash, or any other concerns. 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 She is not taking anything for the pain as of yet. Otherwise denying any other acute complaints. She is had a hysterectomy, cholecystectomy, and appendectomy before. Allergies and Home Medications Allergies Coded Allergies: Penicillins (Verified Allergy, Severe, anaphylaxis, 07/15/21) Patient Home Medication List Home Medication List Reviewed: Yes Albuterol Sulfate (Ventolin Hfa) 18 Gm Hfa.aer.ad, 2 PUFF INH Q4H PRN for SHORTNESS OF BREATH, (Reported) Entered as Reported by: VANNESA MORTON on 07/04/21 1352 Cetirizine HCl (Cetirizine HCl) 10 Mg Tablet, 10 MG PO HS, (Reported) Entered as Reported by: VANNESA MORTON on 07/04/21 1352 Desvenlafaxine Succinate (Desvenlafaxine Succinate ER) 50 Mg Tab.er.24h, 50 MG PO DAILY, (Reported) Entered as Reported by: HUAN FINK on 03/22/20 1237 Glimepiride (Glimepiride) 2 Mg Tablet, 2 MG PO BID, (Reported) Entered as Reported by: VANNESA MORTON on 07/04/21 1352 Hydrochlorothiazide (Hydrochlorothiazide) 12.5 Mg Tablet, 12.5 MG PO HS, (Reported) Entered as Reported by: VANNESA MORTON on 07/04/21 1352 Ketorolac Tromethamine (Ketorolac Tromethamine) 10 Mg Tablet, 10 MG PO Q6H Prescribed by: JETHRO ANGEL on 07/19/21934 Levothyroxine Sodium (Levothyroxine Sodium) 50 Mcg Tablet, 50 MCG PO DAILY, (Reported) Entered as Reported by: HUAN FINK on 03/22/20 1237 Montelukast Sodium (Montelukast Sodium) 10 Mg Tablet, 10 MG PO HS, (Reported) Entered as Reported by: HUAN FINK on 03/22/20 1237 Multivitamin (Multivitamin) 1 Each Tablet, 1 EACH PO DAILY, (Reported) Entered as Reported by: VANNESA MORTON on 07/04/21 1352 Nitrofurantoin Monohyd/M-Cryst (Macrobid 100 mg Capsule) 100 Mg Capsule, 1 TAB PO BID Prescribed by: JETHRO ANGEL on 07/19/21934 Tamsulosin HCl (Flomax) 0.4 Mg Cap, 0.4 MG PO DAILY Prescribed by: JETHRO ANGEL on 07/19/21934 [Thyroid Support] CAP, 1 EA PO DAILY, (Reported) Entered as Reported by: VANNESA MORTON on 07/04/21 1352 Review of Systems Review of Systems Constitutional: No fever EENTM: No Symptoms Reported Respiratory: No Symptoms Reported Gastrointestinal: See HPI Genitourinary: No Symptoms Reported Musculoskeletal: no symptoms reported Skin: no symptoms reported Psychiatric/Neurological: No Symptoms Reported Endocrine: No Symptoms Reported Hematologic/Lymphatic: No Symptoms Reported All Other Systems Reviewed Negative Unless Noted: Yes Past Cbrgfpy-Nozfiv-Lmdemc Hx Patient Social History Tobacco Use?: No Substance use?: No Alcohol Use?: No Pt feels they are or have been: No Immunizations Up To Date First/Initial COVID19 Vaccinat: December 2020 Second COVID19 Vaccination Janusz: December 2020 Third COVID19 Vaccination Date: December 2020 Seasonal Allergies Seasonal Allergies: Yes Past Medical History Surgery/Hospitalization HX: hypothyroidism, DM, asthma Surgeries: Yes (Kidney stone removal, ureter stent, BMT, Breast biopsy) Breast, Ear Surgery, Gallbladder, Hysterectomy Respiratory: Yes (CURRENT USES INHALER) Asthma Currently Using CPAP: No Currently Using BIPAP: No Cardiac: Yes (POTS, Dysautonia, HX OF TACHYCARDIA) High Cholesterol, Hypertension Neurological: No Genitourinary: Yes Kidney Stones Gastrointestinal: No Musculoskeletal: No Endocrine: Yes (Prediabetic, Chronic Fatigue) Hypothyroidsim HEENT: No Cancer: No Psychosocial: Yes Sleep Difficulties, PTSD, Depression Integumentary: No Blood Disorders: No Family Medical History No Pertinent Family Hx Physical Exam Vital Signs Vital Signs - First Documented 08/13/22 12:59 Temp 36.3 Pulse 98 Resp 18 B/P (MAP) 157/84 (108) Pulse Ox 97 O2 Delivery Room Air Capillary Refill : Less Than 3 Seconds Height/Weight/BMI Height: 5'4.00" Weight: 244lbs. oz. 110.062908an; 41.00 BMI Method:Stated General Appearance: WD/WN, mild distress HEENT: PERRL/EOMI, normal ENT inspection, pharynx normal Neck: non-tender, full range of motion, supple, normal inspection Respiratory: chest non-tender, lungs clear, normal breath sounds, no respiratory distress, no accessory muscle use Cardiovascular: regular rate, rhythm, no edema, no murmur Gastrointestinal: normal bowel sounds, soft; No distended, No guarding, No rebound; tenderness Extremities: normal range of motion, non-tender, normal inspection, no pedal edema, no calf tenderness, normal capillary refill Back: normal inspection, no CVA tenderness Neurologic/Psychiatric: no motor/sensory deficits, alert, normal mood/affect Skin: normal color, warm/dry Lymphatic: no adenopathy Progress/Results/Core Measures Results/Orders Lab Results Laboratory Tests Test 08/13/22 12:50 08/13/22 13:00 Range/Units Urine Color YELLOW Urine Clarity SLIGHTLY CLOUDY Urine pH 5.0 5-9 Urine Specific Cutler >=1.030 1.016-1.022 Urine Protein NEGATIVE NEGATIVE Urine Glucose (UA) NEGATIVE NEGATIVE Urine Ketones NEGATIVE NEGATIVE Urine Nitrite NEGATIVE NEGATIVE Urine Bilirubin NEGATIVE NEGATIVE Urine Urobilinogen 0.2 < = 1.0 MG/DL Urine Leukocyte Esterase NEGATIVE NEGATIVE Urine RBC (Auto) 3+ H NEGATIVE Urine RBC 10-25 H /HPF Urine WBC NONE /HPF Urine Squamous Epithelial Cells 25-50 H /HPF Urine Crystals NONE /LPF Urine Bacteria MODERATE H /HPF Urine Casts NONE /LPF Urine Mucus LARGE H /LPF Urine Culture Indicated NO Urine Test NEGATIVE NEGATIVE Influenza Type A (RT-PCR) Not Detected Not Detecte Influenza Type B (RT-PCR) Not Detected Not Detecte SARS-CoV-2 RNA (RT-PCR) Not Detected Not Detecte White Blood Count 9.2 4.3-11.0 10^3/uL Red Blood Count 4.77 3.80-5.11 10^6/uL Hemoglobin 14.3 11.5-16.0 g/dL Hematocrit 41 35-52 % Mean Corpuscular Volume 86 80-99 fL Mean Corpuscular Hemoglobin 30 25-34 pg Mean Corpuscular Hemoglobin Concent 35 32-36 g/dL Red Cell Distribution Width 12.7 10.0-14.5 % Platelet Count 301 130-400 10^3/uL Mean Platelet Volume 8.8 L 9.0-12.2 fL Immature Granulocyte % (Auto) 0 % Neutrophils (%) (Auto) 62 42-75 % Lymphocytes (%) (Auto) 31 12-44 % Monocytes (%) (Auto) 5 0-12 % Eosinophils (%) (Auto) 3 0-10 % Basophils (%) (Auto) 0 0-10 % Neutrophils # (Auto) 5.7 1.8-7.8 10^3/uL Lymphocytes # (Auto) 2.8 1.0-4.0 10^3/uL Monocytes # (Auto) 0.4 0.0-1.0 10^3/uL Eosinophils # (Auto) 0.2 0.0-0.3 10^3/uL Basophils # (Auto) 0.0 0.0-0.1 10^3/uL Immature Granulocyte # (Auto) 0.0 0.0-0.1 10^3/uL Sodium Level 135 135-145 MMOL/L Potassium Level 4.3 3.6-5.0 MMOL/L Chloride Level 101 98-107 MMOL/L Carbon Dioxide Level 20 L 21-32 MMOL/L Anion Gap 14 5-14 MMOL/L Blood Urea Nitrogen 13 7-18 MG/DL Creatinine 0.66 0.60-1.30 MG/DL Estimat Glomerular Filtration Rate 109 BUN/Creatinine Ratio 20 Glucose Level 128 H 70-105 MG/DL Calcium Level 9.4 8.5-10.1 MG/DL Corrected Calcium 8.5-10.1 MG/DL Magnesium Level 2.4 1.6-2.4 MG/DL Total Bilirubin 0.5 0.1-1.0 MG/DL Aspartate Amino Transf (AST/SGOT) 40 H 5-34 U/L Alanine Aminotransferase (ALT/SGPT) 58 H 0-55 U/L Alkaline Phosphatase 100 40-136 U/L Total Protein 7.6 6.4-8.2 GM/DL Albumin 4.8 H 3.2-4.5 GM/DL Lipase 33 8-78 U/L My Orders Orders - LAURA LR MD Cbc With Automated Diff (08/13/22 12:57) Comprehensive Metabolic Panel (08/13/22 12:57) Hcg,Qualitative Urine (08/13/22 12:57) Lipase (08/13/22 12:57) Magnesium (08/13/22 12:57) Ua Culture If Indicated (08/13/22 12:57) Influenza A And B By Pcr (08/13/22 12:57) Covid 19 Inhouse Test (08/13/22 12:57) Lactated Ringers (Lr 1000 Ml Iv Solution (08/13/22 12:57) Ondansetron Injection (Zofran Injectio (08/13/22 13:00) Lidocaine 2% Viscous 15 Ml (Xylocaine Vi (08/13/22 13:15) Famotidine Tablet (Pepcid Tablet) (08/13/22 13:01) Antacid Suspension (Mylanta Suspension (08/13/22 13:15) Ct Abdomen/Pelvis W (08/13/22 13:06) Iohexol Injection (Omnipaque 350 Mg/Ml 1 (08/13/22 13:15) Received Contrast (Hold Metformin- Contr (08/13/22 13:15) Sodium Chloride Flush (Catheter Flush Sy (08/13/22 13:15) Ns (Ivpb) (Sodium Chloride 0.9% Ivpb Bag (08/13/22 13:15) Medications Given in ED Current Medications Medications Dose Ordered Sig/Natasha Route Start Time Stop Time Status Last Admin Dose Admin Al Hydrox/Mg Hydrox/Simethicone 30 ml ONCE ONCE PO 08/13/22 13:15 08/13/22 13:16 DC 08/13/22 13:07 30 ML Iohexol 100 ml ONCE ONCE IV 08/13/22 13:15 08/13/22 13:24 DC 08/13/22 13:47 80 ML Lidocaine HCl 15 ml ONCE ONCE PO 08/13/22 13:15 08/13/22 13:16 DC 08/13/22 13:07 15 ML Ondansetron HCl 4 mg ONCE ONCE IVP 08/13/22 13:00 08/13/22 13:01 DC 08/13/22 13:07 4 MG Sodium Chloride 10 ml NEEDED PRN IV 08/13/22 13:15 08/13/22 13:47 10 ML Sodium Chloride 100 ml ONCE ONCE IV 08/13/22 13:15 08/13/22 13:24 DC 08/13/22 13:47 100 ML Vital Signs/I&O 08/13/22 12:59 Temp 36.3 Pulse 98 Resp 18 B/P (MAP) 157/84 (108) Pulse Ox 97 O2 Delivery Room Air Blood Pressure Mean: 108 Progress Progress Note : Progress Note 47-year-old female with above history coming in due to vomiting, diarrhea, abdominal pain. ABCs were intact and vitals are stable on presentation. Physical exam with abdominal tenderness but no signs of peritonitis. Not IV was placed and she was given a bolus of IV fluids as well as Zofran and a GI cocktail. Basic labs obtained and were significant for a mildly elevated AST and ALT, normal white blood cell count, normal lipase, urinalysis without evidence of infection, although there is blood in her urine. CT abdomen pelvis ordered to assess for obstruction versus stump appendicitis versus some other etiology for her pain. This was negative for acute findings that could be causing her pain. Patient likely has a viral illness causing her symptoms. I believe she is stable for discharge with outpatient follow-up. She was sent with strict return precautions. Prescription sent for nausea medications. Diagnostic Imaging Diagonstic Imaging: CT (abd/pelvis) Comments NAME: ANDER MARTINES [facility] REC#: [id number] PT STATUS: REG ER : 1975 PHYSICIAN: LAURA LR MD ADMIT DATE: 08/13/22/ER FS Draft Date of Exam:08/13/22 CT ABDOMEN/PELVIS W PROCEDURE: CT abdomen and pelvis with contrast. TECHNIQUE: Multiple contiguous axial images were obtained through the abdomen and pelvis after administration of intravenous contrast. Auto Exposure Controls were utilized during the CT exam to meet ALARA standards for radiation dose reduction. All CT scans use one or more of the following dose optimizing techniques: automated exposure control, MA and/or KvP adjustment based on patient size and exam type or iterative reconstruction. INDICATION: Upper abdominal pain and vomiting. FINDINGS: The heart size is normal. The lung bases are clear. There is mild fatty infiltration of the liver. The gallbladder is surgically absent. There are no focal liver lesions. There is no biliary ductal dilatation. The spleen is normal. The pancreas and adrenal glands are unremarkable. There are numerous nonobstructing stones in the right kidney. The left kidney is normal. The aorta is nonaneurysmal. The bowel gas pattern is nonspecific. The bladder is decompressed. There is no pelvic mass or adenopathy. There is no free air. There is no ascites. The osseous structures are unremarkable. IMPRESSION: Fatty infiltration of the liver. Multiple nonobstructing right renal calculi. No other acute abnormality in the abdomen or pelvis. Dictated on workstation # [id number] Dict: 08/13/22 1357 Trans: 08/13/22 1428 [id number] Interpreted by: NUVIA SALVADOR MD Electronically signed by: Departure Impression Primary Impression: Vomiting in adult Additional Impression: Diarrhea Qualified Codes: R19.7 - Diarrhea, unspecified Disposition: 01 HOME, SELF-CARE Condition: Stable Departure-Patient Inst. Decision time for Depature: 14:36 Referrals: GERHARD PANCHAL MD (PCP) Primary Care Physician Patient Instructions: Diarrhea, Adult ED, Nausea and Vomiting, Adult ED Add. Discharge Instructions: You do have a mildly elevated AST and ALT which are signs of inflammation in your liver. The CT of your abdomen pelvis did show some fatty infiltration in your liver. I would recommend following up with your regular doctor to discuss this, although there is likely nothing to do at this time immediately. Your labs are otherwise unremarkable although you do have some blood in your urine. You do have some kidney stones up in your kidney, but they have not passed as of yet. This could be the cause of the blood. I recommend having a urinalysis in the future to see if there continues to be blood in your urine and discussing the results with your primary care physician. Nausea medicines were sent to your pharmacy. Give this a few days to pass and try to take an gentle fluids in the meantime. Scripts Ondansetron (Ondansetron Odt) 4 Mg Tab.rapdis 4 MG SL Q6H PRN for NAUSEA/VOMITING for 5 Days, #20 TAB Prov: LAURA LR MD 08/13/22 Work/School Note: Work Release Form Date Seen in the Emergency Department: Aug 13, 2022 Return to Work: Aug 15, 2022 Restrictions: Return-No Fever (24hrs), Return-No Vomiting(24hrs) LAURA LR MD Aug 13, 2022 13:40
--- NOTE | 2022-08-13 14:30 | Diagnostic Imaging Report ---
PROCEDURE: CT abdomen and pelvis with contrast. TECHNIQUE: Multiple contiguous axial images were obtained through the abdomen and pelvis after administration of intravenous contrast. Auto Exposure Controls were utilized during the CT exam to meet ALARA standards for radiation dose reduction. All CT scans use one or more of the following dose optimizing techniques: automated exposure control, MA and/or KvP adjustment based on patient size and exam type or iterative reconstruction. INDICATION: Upper abdominal pain and vomiting. FINDINGS: The heart size is normal. The lung bases are clear. There is mild fatty infiltration of the liver. The gallbladder is surgically absent. There are no focal liver lesions. There is no biliary ductal dilatation. The spleen is normal. The pancreas and adrenal glands are unremarkable. There are numerous nonobstructing stones in the right kidney. The left kidney is normal. The aorta is nonaneurysmal. The bowel gas pattern is nonspecific. The bladder is decompressed. There is no pelvic mass or adenopathy. There is no free air. There is no ascites. The osseous structures are unremarkable. IMPRESSION: Fatty infiltration of the liver. Multiple nonobstructing right renal calculi. No other acute abnormality in the abdomen or pelvis. Dictated by: Dictated on workstation # [id number]
[2022-08-13] MEDS ORDERED: ONDA4TAB11 SL (14:37)
[2022-08-13 14:41] VITALS: BP 148/90
== END 2022-08-13 14:42 | disposition home or self-care (01) ==
LOC: EDUNIT# 12:47 → ER FS 12:48
DX: R19.7 Diarrhea, unspecified (principal); R11.2 Nausea with vomiting, unspecified; K76.0 Fatty (change of) liver, not elsewhere classified; Z20.822 Contact with and (suspected) exposure to COVID-19; Z90.49 Acquired absence of other specified parts of digestive tract; Z90.89 Acquired absence of other organs
CPT/HCPCS: 36415; 74177; 80053; 81000; 83690; 83735; 84703; 85025; 87636; Q9967